=== PATIENT | female | born 1975 | race Caucasian/White ===

== ENCOUNTER 2019-12-18 15:43 | Outpatient (REF) | payer MEDICAID, SELFPAY ==
--- NOTE | 2019-12-18 15:47 | MM_ITS ---
EXAMINATION: MM SCREENING DIGITAL BREAST TOMOSYNTHESIS, BILATERAL CLINICAL INFORMATION: Screening. Asymptomatic. The lifetime risk of breast cancer based on the Tyrer-Cuzick Model is 7.9%. COMPARISON: Mammography: June 20, 2018 and December 02, 2016 TECHNIQUE: Digital breast tomosynthesis is performed in both the craniocaudal and mediolateral oblique views along with computer-aided detection (CAD). Synthesized 2D images are generated from the tomosynthesis. FINDINGS: There are scattered areas of fibroglandular density (ACR BI-RADS breast composition Category b). There are no significant masses, abnormal calcifications, or other abnormalities. MM/MM tomosynthesis screening BI IMPRESSION: There are no significant changes from prior study. ASSESSMENT: BI-RADS 1: Negative RECOMMENDATION: Routine annual mammography screening. This patient's information was entered into a reminder system with a target due date for their next mammogram.
== END 2019-12-18 15:44 | disposition home or self-care (01) ==
LOC: HO.MAMMO 15:43
PROVIDERS: PCP Pediatrics; Visit Provider Pediatrics
DX: Z12.31 Encounter for screening mammogram for malignant neoplasm of breast (principal); K21.9 Gastro-esophageal reflux disease without esophagitis; Z12.11 Encounter for screening for malignant neoplasm of colon; J30.9 Allergic rhinitis, unspecified
CPT/HCPCS: 77063; 77067; 99212

== ENCOUNTER 2020-02-19 11:32 | Outpatient (REF) | payer MEDICAID, SELFPAY ==
[2020-02-19 14:02] LABS: Basophils Percent Auto 0.3 % (0-2); Eosinophils Absolute Auto 0.2 X10*3/uL (0.0-0.4); Eosinophils Percent Auto 1.2 % (0-4); Hematocrit 35.8 % (37-47); Hemoglobin 11.7 g/dl (12.0-16.0); Imm Gran Abs Auto 0.08 X10*3/uL (0.00-0.03); Imm Gran Pct Auto 0.6 % (0.0-0.4); Lymphocytes Absolute Auto 2.1 X10*3/uL (1.2-4.9); Lymphocytes Percent Auto 16.4 % (20-40); Mean Corpuscular HGB Conc 32.7 g/dl (31.0-35.0); Mean Corpuscular Hemoglobin 26.7 pg (27.0-33.0); Mean Corpuscular Volume 81.7 fL (80-98); Monocytes Absolute Auto 0.6 X10*3/uL (0.1-1.2); Monocytes Percent Auto 4.7 % (2-11); Neutrophils Absolute Auto 9.9 X10*3/uL (2.0-8.3); Neutrophils Percent Auto 76.8 % (45-73); Platelet Count 387 X10*3/uL (160-400); Red Blood Count 4.38 X10*6/uL (4.20-5.50); Red Cell Distribution Width 14.8 % (11.0-16.0); White Blood Count 12.9 X10*3/uL (4.8-10.8)
[2020-02-19 14:03] LABS: MANUAL DIFF FLAG NO
[2020-02-19 14:26] LABS: Alanine Aminotransferase 17 U/L (0-31); Albumin Level 4.5 g/dL (3.5-5.0); Alkaline Phosphatase 72 U/L (39-117); Anion Gap 13 (12-20); Aspartate Amino Transferase 17 U/L (5-31); Bilirubin Total 0.2 mg/dL (0.0-1.0); Blood Urea Nitrogen 14 mg/dL (9-16); Calcium 9.3 mg/dL (8.4-10.2); Carbon Dioxide 30 mmol/L (22-29); Chloride 100 mmol/L (96-108); Estimated Glomerular Filt Rate > 60; Glucose Random 88 mg/dL (60-115); Potassium 3.7 mmol/l (3.3-5.1); Sodium 139 mmol/L (135-145); Total Protein 7.4 g/dL (6.5-8.0)
== END 2020-02-19 11:33 | disposition home or self-care (01) ==
LOC: HO.HMGCLDS 11:32
PROVIDERS: PCP Pediatrics; Visit Provider Nurse Practitioner
DX: Z12.11 Encounter for screening for malignant neoplasm of colon (principal)
CPT/HCPCS: 36415; 80053; 85025

== ENCOUNTER 2020-02-22 09:26 | Day surgery (SDC) | payer MEDICAID, SELFPAY ==
--- NOTE | 2020-02-20 13:24 | HO.ANESPROP2 ---
Documented by User: Virginia Bell 02/20/20 13:26 HPI - Anesthesia Eval Consult details Narrative: 44yo F for Colonoscopy PMFSH Past Medical History Medical History Anxiety Depression Elevated cholesterol GERD (gastroesophageal reflux disease) Family History Family History Unknown No problems noted. Unknown No problems noted. Surgical History Surgical History Hx of endoscopy Social History Social History Alcohol intake: current Alcohol intake frequency: holidays/special occasions only Alcohol type: wine Smoking Status: Former smoker Tobacco Type: Cigarette Use of substances other than those prescribed or required for medical reasons: No Advance Directives: No Advance Directives Information Provided: No Advance Directives on File: No Meds Allergies Allergy/AdvReac Type Severity Reaction Status Date / Time No Known Allergies Allergy Verified 12/18/19 14:14 Home Medications Medication Instructions Recorded Confirmed Type albuterol sulfate 90 mcg/actuation 1 inh INHALATION QID 12/18/19 02/18/20 History aerosol inhaler chlorhexidine gluconate 0.12 % 15 ml BUCCAL BID 12/18/19 02/18/20 History mouthwash cholecalciferol (vitamin D3) 1,250 1,250 mcg PO QWEEK 12/18/19 12/18/19 History mcg (50,000 unit) capsule cyclobenzaprine 10 mg tablet 10 mg PO BEDTIME 12/18/19 02/18/20 History fexofenadine 180 mg tablet 180 mg PO DAILY 12/18/19 02/18/20 History fluticasone propionate 50 1 spray INTRANASAL DAILY 12/18/19 02/18/20 History mcg/actuation nasal spray,suspension ibuprofen 600 mg tablet 600 mg PO BID tab 12/18/19 02/18/20 History omega-3 fatty acids 1,000 mg 1,000 mg PO BID 12/18/19 02/18/20 History capsule omeprazole 20 mg capsule,delayed 20 mg PO BID 12/18/19 02/18/20 History release pseudoephedrine HCl 30 mg tablet 30 mg PO Q4-6H PRN 12/18/19 02/18/20 History varenicline 0.5 mg tablet 0.5 mg PO DAILY 12/18/19 02/18/20 History Exam Exam Date and Time: February 20, 2020 1324 Pertinent Lab Results Pertinent Lab Results: Laboratory Tests 02/19/20 02/19/20 11:40 11:40 WBC 12.9 H Hgb 11.7 L Hct 35.8 L Plt Count 387 Sodium 139 Potassium 3.7 Chloride 100 Carbon Dioxide 30 H BUN 14 Creatinine 0.71 Assessment and Plan Assessment Anesthesia Assessment: Chart Reviewed Documented by User: Cecilia Rae 02/22/20 09:58 PMFSH Past Medical History Medical History Anxiety Depression Elevated cholesterol GERD (gastroesophageal reflux disease) Family History Family History Unknown No problems noted. Unknown No problems noted. Surgical History Surgical History Hx of endoscopy Social History Social History Alcohol intake: current Alcohol intake frequency: holidays/special occasions only Alcohol type: wine Smoking Status: Former smoker Tobacco Type: Cigarette Use of substances other than those prescribed or required for medical reasons: No Advance Directives: No Advance Directives Information Provided: No Advance Directives on File: No Meds Allergies Allergy/AdvReac Type Severity Reaction Status Date / Time No Known Allergies Allergy Verified 12/18/19 14:14 Home Medications Medication Instructions Recorded Confirmed Type albuterol sulfate 90 mcg/actuation 1 inh INHALATION QID 12/18/19 02/18/20 History aerosol inhaler chlorhexidine gluconate 0.12 % 15 ml BUCCAL BID 12/18/19 02/18/20 History mouthwash cholecalciferol (vitamin D3) 1,250 1,250 mcg PO QWEEK 12/18/19 12/18/19 History mcg (50,000 unit) capsule cyclobenzaprine 10 mg tablet 10 mg PO BEDTIME 12/18/19 02/18/20 History fexofenadine 180 mg tablet 180 mg PO DAILY 12/18/19 02/18/20 History fluticasone propionate 50 1 spray INTRANASAL DAILY 12/18/19 02/18/20 History mcg/actuation nasal spray,suspension ibuprofen 600 mg tablet 600 mg PO BID tab 12/18/19 02/18/20 History omega-3 fatty acids 1,000 mg 1,000 mg PO BID 12/18/19 02/18/20 History capsule omeprazole 20 mg capsule,delayed 20 mg PO BID 12/18/19 02/18/20 History release pseudoephedrine HCl 30 mg tablet 30 mg PO Q4-6H PRN 12/18/19 02/18/20 History varenicline 0.5 mg tablet 0.5 mg PO DAILY 12/18/19 02/18/20 History Exam Airway Mallampati Class: II TM Dist: >3cm Neck ROM: Full Assessment and Plan Assessment Anesthesia Assessment: Anesthesia Plan Discussed and Chart Reviewed Final Anesthetic Review NPO: Yes ASA Class: II Final Preanesthetic Review: No Changes in Pt Med Stat, Meds/Allgs Chart Reviewed, Consent Obtained/Reviewed and Anes Risks/Benef Reviewed Patient Risk: Low Procedure Risk: Low Assessment/Block/Sedation in SS: Assess/Block/Sedation-SS Anesthetic Plan Anesthetic Plan: MAC: Disposition: Standard PACU
[2020-02-22 06:30] VITALS: BMI 24.9
[2020-02-22 09:48] VITALS: BP 109/71; PULSE 74; RESP 18; TEMP 36.6; O2SAT 99
[2020-02-22 09:57] LABS: UPreg QC Valid YES; Urine Pregnancy NEG (NEGATIVE)
[2020-02-22] MEDS: Lactated Ringers 1,000 ML 100 ML IVCONT (10:03)
[2020-02-22 10:32] VITALS: BP 109/71; PULSE 66; RESP 18; TEMP 36.3; O2SAT 99
--- NOTE | 2020-02-22 10:45 | P.OP_ITS ---
Operative Note Operative Note Date of Service: 02/22/20 Narrative: Pre-op diagnosis: Colon cancer screening Post-op diagnosis: other (Colon polyps, diverticulosis) Procedure: COLONOSCOPY TO THE CECUM WITH BIOPSIES Consent: Indications for the procedure and potential complications of bleeding, perforation, reaction to medications and missed diagnosis were discussed with the patient and informed consent was obtained. Instrument: Olympus PCF H 190 L variable stiffness pediatric colonoscope Monitoring: Vital signs and clinical assessment, intermittent blood pressure monitoring, continuous EKG monitoring, Pulse oximetry and Carbon Dioxide monitoring were done throughout the procedure. Colon withdrawl time was 20 minutes. Procedure: The patient was placed in the left lateral decubitis position and pre-procedure medications were administered. After a digital rectal examination of the ano-rectum, the video colonoscope was inserted into the rectum and advanced through the colon to the cecum. The colonoscope was slowly withdrawn in a retrograde panoramic fashion and the colon mucosa was carefully examined including a retroflexed view of the rectum. Findings and interventions are described below. Procedure Difficulty: Without difficulty Findings: Terminal Ileum: Not evaluated Cecum: Normal Ascending Colon: Normal Transverse Colon: 4-5 mm sessile polyp in proximal TC removed with cold biopsy Descending Colon: Moderate diverticulosis Sigmoid Colon: Moderate diverticulosis Rectum: Normal Ano-rectum: Normal Colon preparation: Good Impression and Post Procedure Diagnosis: Colonoscopy Findings: One small polyp removed Moderate diverticulosis seen in the left colon Plan: Await pathology results Patient has an appointment on 03/21/20 in the [facility] with Brianna Stringer NP . Repeat Colonoscopy interval based on path results - in 5 years if polyps are adenomatous and 10 years if polyps are hyperplastic. Above findings were reviewed with the patient and colon polyps and diverticu losis handouts were given in the discharge area Surgeon: Eyad Donohue MD Anesthesia: MAC (Ponce Garcia CRNA) Estimated blood loss (mL): 0 Pathology: other (A. TC polyp x 1) Condition: stable Disposition: PACU
--- NOTE | 2020-02-22 10:45 | MHC.SHP ---
Pre-Procedural Eval Section A The patient is an INPATIENT: No The History & Physical has been completed within 30 days and I have reviewed it.: No Section B Chief Complaint: Screening Details of Present Illness: Colon cancer screening Relevant Family History (Specify if Yes): No Relevant Social History: Tobacco Use (former smoker) Present Medications: see Short Stay Collaborative assessment Medical History: Significant History (I cholesterol, allergic rhinitis, GERD, depression and anxiety) History of Previous Operations: Relevant previous surgery/procedure and date(s) (EGD) Allergies: Allergies Allergy/AdvReac Type Severity Reaction Status Date / Time No Known Allergies Allergy Verified 12/18/19 14:14 Review of Systems Sugical H&P ROS: Negative: Constitution, Cardiovascular, Respiratory and Gastrointestinal Exam Surgical H&P Exam: Normal: Heart, Normal: Lungs, Normal: Extremities and Normal: Abdomen Plan Diagnosis/Plan: Unchanged I have reviewed the history and physical and performed a pertinent physical examination on my patient. No changes have occurred unless specified.
[2020-02-22 11:36] VITALS: BP 93/57; PULSE 62; RESP 16; TEMP 36.1; O2SAT 99
[2020-02-22 11:51] VITALS: BP 107/72; PULSE 58; RESP 16; TEMP 36.2; O2SAT 100
--- NOTE | 2020-02-22 12:11 | HO.POSTANES ---
Post Anesthesia Evaluation Post Anesthesia Evaluation Vital Signs: Vital Signs Temp Pulse Resp BP Pulse Ox 02/22/20 11:51 97.2 F 58 16 107/72 100 02/22/20 11:36 97 F 62 16 93/57 L 99 02/22/20 10:32 97.3 F 66 18 109/71 99 02/22/20 09:48 97.8 F 74 18 109/71 99 Anesthesia: General (tiva) Mental Status: Awake Pain Control: Satisfactory Nausea/Vomiting: None Hydration: Adequate Anesthesia-Related Issues: No Anes. Related Issues
== END 2020-02-22 12:19 | disposition home or self-care (01) ==
PROVIDERS: PCP Pediatrics; Visit Provider Internal Medicine Gastroenterology
PROC: 0DJD8ZZ Inspection of Lower Intestinal Tract, Via Natural or Artificial Opening Endoscopic (ICD-10-PCS; CPT 45378; principal; 2020-02-22 10:30)
DX: Z12.11 Encounter for screening for malignant neoplasm of colon (principal); D12.2 Benign neoplasm of ascending colon; K57.30 Diverticulosis of large intestine without perforation or abscess without bleeding; K21.9 Gastro-esophageal reflux disease without esophagitis; Z79.899 Other long term (current) drug therapy; Z87.891 Personal history of nicotine dependence
CPT/HCPCS: 45380; 81025; 88305

== ENCOUNTER → 2020-03-27 15:59 | Outpatient (BNVA) | payer MEDICAID, SELFPAY | PROVIDERS: PCP Pediatrics; Visit Provider Nurse Practitioner ==

== ENCOUNTER 2021-05-12 15:07 | Outpatient (REF) | payer MEDICAID, SELFPAY ==
--- NOTE | ~2021-05-12 | MM_ITS ---
EXAMINATION: MM SCREENING DIGITAL BREAST TOMOSYNTHESIS, BILATERAL CLINICAL INFORMATION: Screening. Asymptomatic. The lifetime risk of breast cancer based on the Tyrer-Cuzick Model is 8%. COMPARISON: Mammography: 12/18/2019, 06/20/2018, 12/02/2016 TECHNIQUE: Digital breast tomosynthesis is performed in both the craniocaudal and mediolateral oblique views along with computer-aided detection (CAD). Synthesized 2D images are generated from the tomosynthesis. FINDINGS: There are scattered areas of fibroglandular density (ACR BI-RADS breast composition Category b). There are no significant masses, abnormal calcifications, or other abnormalities. Parenchymal pattern is similar to prior studies. There is no developing density or architectural abnormality. The axilla and skin contours are unremarkable. No significant changes. MM/MM tomosynthesis screening BI IMPRESSION: No mammographic evidence of malignancy. ASSESSMENT: BI-RADS 1: Negative RECOMMENDATION: Routine annual mammography screening. This patient's information was entered into a reminder system with a target due date for their next mammogram.
== END 2021-05-12 15:08 | disposition home or self-care (01) ==
LOC: HO.MAMMO 15:07
PROVIDERS: Visit Provider Pediatrics
DX: Z12.31 Encounter for screening mammogram for malignant neoplasm of breast (principal)
CPT/HCPCS: 77063; 77067

== ENCOUNTER 2021-05-14 08:00 | Outpatient (REF) | payer MEDICAID, SELFPAY ==
[2021-05-14 11:20] LABS: MANUAL DIFF FLAG NO
[2021-05-14 11:33] LABS: Prothrombin Time 11.7 SEC (9.9-13.0)
[2021-05-14 11:35] LABS: Basophils Percent Auto 0.4 % (0-2); Eosinophils Absolute Auto 0.1 X10*3/uL (0.0-0.4); Eosinophils Percent Auto 1.4 % (0-4); Hematocrit 37.7 % (37.0-47.0); Hemoglobin 12.9 g/dl (12.0-16.0); Imm Gran Abs Auto 0.02 X10*3/uL (0.00-0.03); Imm Gran Pct Auto 0.2 % (0.0-0.4); Lymphocytes Absolute Auto 1.1 X10*3/uL (1.2-4.9); Lymphocytes Percent Auto 13.9 % (20-40); Mean Corpuscular HGB Conc 34.2 g/dl (31.0-35.0); Mean Corpuscular Hemoglobin 29.3 pg (27.0-33.0); Mean Corpuscular Volume 85.5 fL (80.0-98.0); Mean Platelet Volume 11.1 fL (9.4-12.3); Monocytes Absolute Auto 0.4 X10*3/uL (0.1-1.2); Monocytes Percent Auto 4.6 % (2-11); Neutrophils Absolute Auto 6.4 x10*3/uL (2.0-8.3); Neutrophils Percent Auto 79.5 % (45-73); Platelet Count 242 X10*3/uL (160-400); Red Blood Count 4.41 X10*6/uL (4.20-5.50); Red Cell Distribution Width 15.6 % (11.0-16.0)
[2021-05-14 11:36] LABS: Partial Thromboplastin Time 34.2 SEC (24.1-38.0)
[2021-05-14 11:47] LABS: HCG Quantitative < 2 mIU/mL
[2021-05-14 12:30] LABS: Alanine Aminotransferase 25 U/L (0-31); Albumin Level 4.3 g/dL (3.5-5.0); Alkaline Phosphatase 62 U/L (39-117); Anion Gap 13 (12-20); Aspartate Amino Transferase 21 U/L (5-31); Bilirubin Total 0.3 mg/dL (0.0-1.0); Blood Urea Nitrogen 15 mg/dL (9-16); Calcium 9.9 mg/dL (8.4-10.2); Carbon Dioxide 28 mmol/L (22-29); Chloride 107 mmol/L (96-108); Estimated Glomerular Filt Rate > 60; Glucose Fasting 85 mg/dL (60-99); Potassium 4.1 mmol/L (3.3-5.1); Sodium 144 mmol/L (135-145); Total Protein 7.3 g/dL (6.5-8.0)
[2021-05-15 07:49] LABS: HIV AB/AG Nonreactive (Nonreactive); HIV Num 1 0.12 S/CO (0.00-0.99)
== END 2021-05-14 08:01 | disposition home or self-care (01) ==
LOC: HO.HMGCLDS 08:00
PROVIDERS: Visit Provider Plastic Surgery
DX: Z01.818 Encounter for other preprocedural examination (principal); Z11.4 Encounter for screening for human immunodeficiency virus [HIV]
CPT/HCPCS: 36415; 80053; 84702; 85025; 85610; 85730; 87389

== ENCOUNTER 2021-05-16 10:33 | Outpatient (REF) | payer MEDICAID, SELFPAY ==
--- NOTE | ~2021-05-16 | XR_ITS ---
EXAMINATION: XR CHEST CLINICAL INFORMATION: Preop COMPARISON: None TECHNIQUE: 2 views of the chest were obtained. FINDINGS: No significant abnormality is noted involving the heart, lungs, mediastinum, bony thorax or soft tissues. XR/XR chest 2V IMPRESSION: Unremarkable examination.
== END 2021-05-16 10:34 | disposition home or self-care (01) ==
LOC: HO.HMGCX 10:33
PROVIDERS: Visit Provider Plastic Surgery
DX: Z01.818 Encounter for other preprocedural examination (principal)
CPT/HCPCS: 71046

== ENCOUNTER 2022-03-23 11:19 | Outpatient (REF) | payer MEDICAID, SELFPAY | END 2022-03-23 11:20 | disposition home or self-care (01) | LOC: HO.HOSX 11:19 | PROVIDERS: Visit Provider Orthopaedic Surgery | DX: Z13.89 Encounter for screening for other disorder (principal) ==

== ENCOUNTER 2022-07-20 14:57 | Outpatient (REF) | payer MEDICAID, SELFPAY ==
--- NOTE | ~2022-07-20 | MM_ITS ---
EXAMINATION: MM SCREENING DIGITAL BREAST TOMOSYNTHESIS, BILATERAL CLINICAL INFORMATION: Screening. Asymptomatic. The lifetime risk of breast cancer based on the Tyrer-Cuzick Model is 8%. COMPARISON: Mammography: 05/12/2021, 12/18/2019, 06/20/2018 TECHNIQUE: Digital breast tomosynthesis is performed in both the craniocaudal and mediolateral oblique views along with computer-aided detection (CAD). Synthesized 2D images are generated from the tomosynthesis. FINDINGS: There are scattered areas of fibroglandular density (ACR BI-RADS breast composition Category b). There are no significant masses, abnormal calcifications, or other abnormalities. No architectural abnormality or developing density or significant change from prior studies. The axilla and skin contours are unremarkable. MM/MM tomosynthesis screening BI IMPRESSION: No mammographic evidence of malignancy. ASSESSMENT: BI-RADS 1: Negative RECOMMENDATION: Routine annual mammography screening. This patient's information was entered into a reminder system with a target due date for their next mammogram.
== END 2022-07-20 14:58 | disposition home or self-care (01) ==
LOC: HO.MAMMO 14:57
PROVIDERS: Visit Provider Pediatrics
DX: Z12.31 Encounter for screening mammogram for malignant neoplasm of breast (principal)
CPT/HCPCS: 77063; 77067

== ENCOUNTER 2023-03-07 12:11 | Outpatient (REF) | payer MEDICAID, SELFPAY | END 2023-03-07 12:12 | disposition home or self-care (01) | LOC: HO.HHCLNP 12:11 | PROVIDERS: Visit Provider Internal Medicine | DX: R30.0 Dysuria (principal) | CPT/HCPCS: 87086; 87088; 87186 ==

== ENCOUNTER 2023-09-08 13:44 | Outpatient (REF) | payer MEDICAID, SELFPAY ==
[2023-09-08 17:25] LABS: MANUAL DIFF FLAG NO
[2023-09-08 17:33] LABS: Basophils Percent Auto 0.5 % (0-2); Eosinophils Absolute Auto 0.1 X10*3/uL (0.0-0.4); Eosinophils Percent Auto 2.2 % (0-4); Hematocrit 36.1 % (37.0-47.0); Hemoglobin 12.2 g/dl (12.0-16.0); Imm Gran Abs Auto 0.04 X10*3/uL (0.00-0.03); Imm Gran Pct Auto 0.7 % (0.0-0.4); Lymphocytes Absolute Auto 1.6 X10*3/uL (1.2-4.9); Lymphocytes Percent Auto 27.7 % (20-40); Mean Corpuscular HGB Conc 33.8 g/dl (31.0-35.0); Mean Corpuscular Hemoglobin 28.8 pg (27.0-33.0); Mean Corpuscular Volume 85.3 fL (80.0-98.0); Mean Platelet Volume 11.2 fL (9.4-12.3); Monocytes Absolute Auto 0.5 X10*3/uL (0.1-1.2); Monocytes Percent Auto 8.1 % (2-11); Neutrophils Absolute Auto 3.5 x10*3/uL (2.0-8.3); Neutrophils Percent Auto 60.8 % (45-73); Platelet Count 286 X10*3/uL (160-400); Red Blood Count 4.23 X10*6/uL (4.20-5.50); Red Cell Distribution Width 13.5 % (11.0-16.0); White Blood Count 5.8 X10*3/uL (4.8-10.8)
[2023-09-08 17:49] LABS: Anion Gap 15 (12-20); Blood Urea Nitrogen 16 mg/dL (9-16); Carbon Dioxide 26 mmol/L (22-29); Chloride 105 mmol/L (96-108); Estimated Glomerular Filt Rate > 60; Glucose Random 84 mg/dL (60-115); Potassium 3.5 mmol/L (3.3-5.1); Sodium 142 mmol/L (135-145)
[2023-09-08 18:22] LABS: Folate 10.3 ng/mL (> or = 4.0); Vitamin B12 305 pg/mL (200-900)
== END 2023-09-08 13:45 | disposition home or self-care (01) ==
LOC: HO.CHCLDS 13:44
PROVIDERS: Visit Provider Pediatrics
DX: R20.2 Paresthesia of skin (principal)
CPT/HCPCS: 36415; 80048; 82550; 82607; 82746; 85025

== ENCOUNTER 2023-09-21 14:53 | Outpatient (REF) | payer MEDICAID, SELFPAY ==
--- NOTE | ~2023-09-21 | MM_ITS ---
EXAMINATION: MM SCREENING DIGITAL BREAST TOMOSYNTHESIS, BILATERAL CLINICAL INFORMATION: Screening. Asymptomatic. COMPARISON: Mammography: This study is compared with prior exams dating back to 2019. TECHNIQUE: Digital breast tomosynthesis is performed in both the craniocaudal and mediolateral oblique views along with computer-aided detection (CAD). Synthesized 2D images are generated from the tomosynthesis. FINDINGS: There are scattered areas of fibroglandular density (ACR BI-RADS breast composition Category b). There are no significant masses, abnormal calcifications, or other abnormalities. MM/MM tomosynthesis screening BI IMPRESSION: No mammographic evidence of malignancy. ASSESSMENT: BI-RADS BI-RADS 1 - Negative RECOMMENDATION: Routine annual mammography screening. 1 year F/U This examination should not preclude the clinical evaluation of a suspicious palpable abnormality. This patient's information was entered into a reminder system with a target due date for their next mammogram. Electronically signed by: Joanna Ruggiero MD 10/18/2023 07:38 AM EDT
== END 2023-09-21 14:54 | disposition home or self-care (01) ==
LOC: HO.MAMMO 14:53
PROVIDERS: PCP Pediatrics; Visit Provider Pediatrics
DX: Z12.31 Encounter for screening mammogram for malignant neoplasm of breast (principal)
CPT/HCPCS: 77063; 77067

== ENCOUNTER → 2023-09-21 15:00 | Outpatient (BNV) | payer MEDICAID, SELFPAY | PROVIDERS: PCP Pediatrics; Visit Provider Radiology Diagnostic Radiology | DX: Z12.31 Encounter for screening mammogram for malignant neoplasm of breast (principal) | CPT/HCPCS: 77063; 77067 ==

== ENCOUNTER 2023-09-28 13:59 | Outpatient (REF) | payer MEDICAID, SELFPAY ==
[2023-09-28 17:41] LABS: MANUAL DIFF FLAG NO
[2023-09-28 17:50] LABS: Basophils Percent Auto 0.5 % (0-2); Eosinophils Absolute Auto 0.1 X10*3/uL (0.0-0.4); Eosinophils Percent Auto 1.9 % (0-4); Hematocrit 35.7 % (37.0-47.0); Hemoglobin 12.2 g/dl (12.0-16.0); Imm Gran Abs Auto 0.02 X10*3/uL (0.00-0.03); Imm Gran Pct Auto 0.3 % (0.0-0.4); Lymphocytes Absolute Auto 1.8 X10*3/uL (1.2-4.9); Lymphocytes Percent Auto 28.4 % (20-40); Mean Corpuscular HGB Conc 34.2 g/dl (31.0-35.0); Mean Corpuscular Hemoglobin 28.7 pg (27.0-33.0); Mean Platelet Volume 10.3 fL (9.4-12.3); Monocytes Absolute Auto 0.4 X10*3/uL (0.1-1.2); Monocytes Percent Auto 6.8 % (2-11); Neutrophils Percent Auto 62.1 % (45-73); Platelet Count 290 X10*3/uL (160-400); Red Blood Count 4.25 X10*6/uL (4.20-5.50); White Blood Count 6.5 X10*3/uL (4.8-10.8)
[2023-09-28 18:04] LABS: Anion Gap 11 (12-20); Blood Urea Nitrogen 13 mg/dL (9-16); Calcium 9.1 mg/dL (8.4-10.2); Carbon Dioxide 27 mmol/L (22-29); Chloride 106 mmol/L (96-108); Estimated Glomerular Filt Rate > 60; Glucose Random 98 mg/dL (60-115); Potassium 3.4 mmol/L (3.3-5.1); Sodium 141 mmol/L (135-145)
[2023-09-28 18:20] LABS: TSH reflex Free T4 1.01 uIU/mL (0.32-4.0); Vitamin D 25-OH Total 22.9 ng/mL (>30)
[2023-09-28 18:34] LABS: Folate 11.5 ng/mL (> or = 4.0); Vitamin B12 351 pg/mL (200-900)
== END 2023-09-28 14:00 | disposition home or self-care (01) ==
LOC: HO.CHCLDS 13:59
PROVIDERS: Visit Provider Pediatrics
DX: Z00.00 Encounter for general adult medical examination without abnormal findings (principal); R79.89 Other specified abnormal findings of blood chemistry; T75.4XXA Electrocution, initial encounter
CPT/HCPCS: 36415; 80048; 82306; 82550; 82607; 82746; 84443; 85025

== ENCOUNTER 2024-11-10 13:55 | Outpatient (REF) | payer OTHER, SELFPAY ==
--- OUTSIDE RECORDS SUMMARY | 2024-11-10 12:40 | XMS_ITS | Encounter Summary ---
Author Organization [employer] Address [address] [place] [address] Care Team Providers Care Shredder Picker Name Role Phone Meredith Rm MD Primary Care Provider [phone] Reason for Visit * Reason Comments UTI Encounter Details Date Type Department Care Team (Late st Contact Info) Description 11/10/2024 12:40 PM EDT Office Visit [facility] [address], [place] [phone] Queta Osorio MD [address] [place], [place] [phone] Acute cystitis with hematuria (Primary Dx); Elevated BP without diagnosis of hypertension; Dysuria Social History Tobacco Use Types Packs/Day Years Used Date Smoking Tobacco: Every Day Cigarettes Passive Smoke Exposure: Current Smokeless Tobacco: Never Housing Stability Answer Date Recorded What is your housing situation today? I have [employer] [place] 03/08/[address] you li ve. Do you have problems with any of the following? None of the above 03/08/2023 Food Insecurity Answer Date Recorded Within the past 12 months, y ou worried that your food would run out before you got money to buy more: Never True 03/08/2023 Within the past 12 months,th e food you bought just didn't last and you didn't have enough money to get more: Never True Transportation Answer Date Recorded In the past 12 months, has l ack of transportation kept you from medical appts, meetings, work or from getting things needed for daily living? No 03/08/2023 Utilities Answer Date Recorded In the past 12 months, has t he electric, gas, oil or water company threatened to shut off services in your home? No 03/08/2023 Comments Unknown Sex and Gender Information Value Date Recorded Sex Assigned at Female 12/14/2021 10:17 AM EDT Legal Sex Female 10:17 AM EDT Gender Identity Female 12/14/2021 10:17 AM EDT Sexual Orientation Straight 12/14/2021 10 :17 AM EDT documented as of this encounter Last Filed Vital Signs Vital Sign Reading Time Taken Comments Blood Pressure 124/92 11/10/2024 12:31 PM EDT Chan carson Pulse 80 11/10/2024 12:30 PM EDT Temperature 36.7 C (98.1 F) 11/10/2024 12:30 PM EDT Respiratory Rate 17 11/10/2024 12:30 PM EDT Oxygen Saturation 98% 11/10/2024 12:30 PM EDT Inhaled Oxygen Concentration - - Weight 73.5 kg (162 lb 2 oz) 11/10/2024 12:30 PM EDT Height 160 cm (5' 3 ) 11/10/2024 12:30 PM EDT Body Mass Index 28.72 11/10/2024 12:30 PM EDT documented in this encounter Progress Notes * Queta Osorio MD - 11/10/2024 12:40 PM EDT SUBJECTIVE: Olga Lassiter is a 49 y.o. year old female who presents for Walk In Center/UTI. Denies recent illness, injury, or hospitalization. Acute concerns: Patient complaining of suprapubic pressure, increased frequency and back pain x 5 days, no fever orchills. She had initial episode of dysuria x 2 days that is now resolved. She denies vaginal discharge. Last UTI was approximately 6 to 8 months ago. LMP none, she is HRT Social History Social History Narrative Not on file Problem List[1] Family History[2] Review of Systems Constitutional: Negative for chills, fatigue and fever. HENT: Negative for congestion, ear pain, nosebleeds, rhinorrhea, sinus pressure, sore throat and trouble swallowing. Eyes: Negative for pain and discharge. Respiratory: Negative for cough, chest tightness and shortness of breath. Cardiovascular: Negative for chest pain, palpitations and leg swelling. Gastrointestinal: Negative for abdominal pain, blood in stool, constipation, diarrhea and nausea. Endocrine: Negative for polydipsia and polyuria. Genitourinary: Positive for dysuria, frequency and pelvic pain. Negative for genital sores and vaginal discharge. Musculoskeletal: Negative for back pain and neck pain. Skin: Negative for rash. Allergic/Immunologic: Negative for environmental allergies. Neurological: Negative for dizziness, seizures, weakness, light-headedness and headaches. Hematological: Negative for adenopathy. Psychiatric/Behavioral: Negative for agitation, behavioral problems, self-injury and suicidal ideas. OBJECTIVE: Vitals: 11/10/24 1230 11/10/24 1231 BP: (!) 145/92 (!) 124/92 BP Location: Left arm Left arm Patient Position: Sitting Lying BP Cuff Size: Adult Adult Pulse: 80 Resp: 17 Temp: 98.1 ??F (36.7 ??C) TempSrc: Oral SpO2: 98% Weight: 162 lb 2 oz (73.5 kg) Height: 5' 3 (1.6 m) Physical Exam HENT: Right Ear: Tympanic membrane and ear canal normal. Left Ear: Tympanic membrane and ear canal normal. Mouth/Throat: Mouth: Mucous membranes are moist. Pharynx: No oropharyngeal exudate or posterior oropharyngeal erythema. Eyes: Pupils: Pupils are equal, round, and reactive to light. Cardiovascular: Rate and Rhythm: Regular rhythm. Pulses: Normal pulses. Heart sounds: Normal heart sounds. No murmur heard. Pulmonary: Breath sounds: Normal breath sounds. Abdominal: General: Bowel sounds are normal. Palpations: Abdomen is soft. Tenderness: There is no abdominal tenderness. Musculoskeletal: General: Normal range of motion. Cervical back: Neck supple. Skin: General: Skin is warm. Neurological: General: No focal deficit present. Mental Status: She is alert and oriented to person, place, and time. Psychiatric: Mood and Affect: Mood normal. Behavior: Behavior normal. Office Visit on 11/10/2024 Component Date Value Ref Range Status Color, UA 11/10/2024 Light Yellow Final Clarity, UA 11/10/2024 Clear Final Glucose, UA 11/10/2024 Negative Final Bilirubin, UA 11/10/2024 Negative Final Ketones, UA 11/10/2024 Negative Final Spec Grav, UA 11/10/2024 1.015 Final Blood, UA 11/10/2024 Positive (A) Negative, None Detected Final Trace-intact pH, UA 11/10/2024 6.5 Final Protein, UA 11/10/2024 Negative Final Urobilinogen, UA 11/10/2024 0.2 Final Leukocytes, UA 11/10/2024 Trace Negative, Rare, Trace Final Small Nitrite, UA 11/10/2024 Negative Negative, None Detected Final Appearance, UA 11/10/2024 clear Final QC Media Lot # 11/10/2024 [id number] Final Lot# Expiration Date 11/10/2024 [id number] Final Problem List Items Addressed This Visit Acute cystitis with hematuria - Primary Bactrim DS bid x 5d Increase water Intake. Fu Ux Culture results. Elevated BP without diagnosis of hypertension Unclear if related to hypertension versus one related to pain from UTI. Advised to check BP at home after 10 minutes rest, hopefully before going to bed and follow-up BP with RN in 2 to 4 weeks, she will follow-up with PCP in 1 to 2 months Other Visit Diagnoses Dysuria Relevant Orders POCT Urinalysis (Completed) Culture, Urine, Routine Follow Up: Medications Ordered Prior to Encounter[3] [1] Patient Active Problem List Diagnosis Low vitamin D level Chronic constipation Acute cystitis with hematuria Black stool Tobacco use Amblyopia of left eye Overweight Hyperlipidemia Nicotine dependence Depressive disorder Anxiety Encounter for IUD removal Elevated BP without diagnosis of hypertension [2] No family history on file. [3] Current Outpatient Medications on File Prior to Visit Medication Sig Dispense Refill azelastine (Astelin) 0.1 % nasal spray Administer 1 spray into each nostril 2 times daily. Use in each nostril as directed 30 mL 12 cetirizine (ZyrTEC) 10 MG tablet TAKE ONE TABLET EVERY DAY 90 tablet 1 ergocalciferol (Vitamin D2) 1.25 MG (71087 UT) capsule Take 1 capsule (1.25 mg) by mouth 1 (one) time per week. 12 capsule 0 estradiol (Climara) 0.025 MG/24HR APPLY 1 PATCH TOPICALLY ONCE PER WEEK 12 patch 1 gabapentin (Neurontin) 300 MG capsule TAKE ONE CAPSULE TWICE DAILY 60 capsule 0 ibuprofen 600 MG tablet Take 1 tab orally tid with food intake prn pain 90 tablet 0 progesterone 100 MG capsule Take 1 capsule (100 mg) by mouth Once per day. 30 capsule 11 No current facility-administered medications on file prior to visit. documented in this encounter Miscellaneous Notes * Assessment & Plan Note - Queta Osorio MD - 11/10/2024 12:49 PM EDT Associated Problem(s): Elevated BP without diagnosis of hypertension Unclear if related to hypertension versus one related to pain from UTI. Advised to check BP at home after 10 minutes rest, hopefully before going to bed and follow-up BP with RN in 2 to 4 weeks, she will follow-up with PCP in 1 to 2 months * Assessment & Plan Note - Queta Osorio MD - 11/10/2024 12:48 PM EDT Associated Problem(s): Acute cystitis with hematuria Bactrim DS bid x 5d Increase water Intake. Fu Ux Culture results. documented in this encounter Plan of Treatment Upcoming Encounters Date Type Department Care Team (Late st Contact Info) Description 11/14/2024 3:30 PM EDT Office Visit [facility] [address] [place] [address] Katheryn Helm CNM [address] [place] [address] 12/05/2024 3:00 PM EDT Clinical Support [facility] [address] [place] [address] 01/17/2025 3:15 PM EST Office Visit [facility] [address] [place] [address] Meredith Rm MD [address] [place] [address] Scheduled Orders Name Type Priority Associated Diagnoses Orde r Schedule Culture, Urine, Routine Microbiology Routine Dysuria Ordered: 11/10/2024 documented as of this encounter Procedures Procedure Name Priority Date/Time Associated Diagnosis Comments POCT URINALYSIS DIPSTICK Routine 11/10/2024 12:33 PM EDT Dysuria documented in this encounter Results * (ABNORMAL) POCT Urinalysis (11/10/2024 12:33 PM EDT) Color, UA Light Yellow Clarity, UA Clear Glucose, UA Negative Bilirubin, UA Negative Ketones, UA Negative Spec Grav, UA 1.015 Blood, UA Positive(A) Negative, None Detected Comment:Trace-intact pH, UA 6.5 Protein, UA Negative Urobilinogen, UA 0.2 Leukocytes, UA Trace Negative, Rare, Trace Comment:Small Nitrite, UA Negative Negative, None Detected Appearance, UA clear QC Media Lot # [id number] Lot# Expiration Date Urine 11/10/2024 12:3 3 PM EDT Queta Osorio MD POINT OF CARE TEST ENTER /EDIT ORDERABLES Final Result documented in this encounter Visit Diagnoses Diagnosis Acute cystitis with hematuria- Primary Elevated BP without diagnosis of hypertension Dysuria documented in this encounter Care Teams Shredder Picker Relationship Specialty Start Date End Date Meredith Rm MD [address] [place] [id number] PCP - General Family Medicine 02/14/18 documented as of this encounter
--- OUTSIDE RECORDS SUMMARY | 2024-11-10 13:57 | XMS_ITS | Encounter Summary ---
Author Organization [employer] Address [address] [facility] 7t [place] [address] Care Team Providers Care Vehicle Trimmer Name Role Phone Meredith Rm MD Primary Care Provider [phone] Reason for Visit * Reason Onset Date Comments Results 09/29/2023 Encounter Details Date Type Department Care Team (Late st Contact Info) Description 09/29/[address] [facility] MEDICINE [address] [place] [address] Meredith Rm MD [address] [place], [place] [phone] Results Social History Tobacco Use Types Packs/Day Years [...] AM EDT documented as of this encounter Miscellaneous Notes * Telephone Encounter - Paola Glasgow - 09/30/2023 11:20 AM EDT Tc from pt requesting to speak with whoever is in charge of the clinic , stated again will be calling all day today if she doesn't receive a call back from someone in a higher position. * Telephone Encounter - Mukund Sawyer - 09/29/2023 4:21 PM EDT Incoming call from pt, requesting to speak with a research laboratory manager, sports book writer inform from point of View EULALIO Crandall and Sri will be giving her a call unsure when, Pt advised if issue is not resolved within today, she will be calling again tomorrow all day. * Telephone Encounter - Rolf Cummins - 09/29/2023 12:48 PM EDT Tc from pt returning call and demanding to speak to director of [facility], states they will be seen at a different facility for labs and will come in with results. Pt also stated they will be filing a law suit for the entire [facility] management. Pt was very upset. Brine Plant Operator attempted to get a hold of manager architectural unable to reach. Please see previous message. Pt stated if no call in 20 min they will be coming in p erson. * Telephone Encounter - Vineet Bentley - 09/29/2023 12:02 PM EDT TC from pt irate and using foul language requesting a call from Dr Rm , Nurse Distribution Technician Julissa ,Blue Leather Sorter [place]. Pt is threatening call every 10-20 min until gets a response regarding her labs . Also threatening with a system safety manager and pulling 17yrld son from seeing Dr Rm . States will be makingcalls to system safety manager and who ever she needs to, to file a report against [facility] . Pt disconnected call before I could get a word in . * Telephone Encounter - Wing Flaquita RN - 09/29/2023 11:22 AM EDT Tc to pt who was very upset that RN was calling her and was asking for a nurse research laboratory manager. Advised pt that PCP was seeing pt's and would get to the lab after seeing pts. Pt found this to be unacceptableand complained about back pain and stated that PCP was a bad provider. Pt claimed that she had to 'beg Dr. Rm to order the labs. and that the PCP may have it out for her for me after I put herin her place . Pt again requested to speak to a research laboratory manager to file a complaint. Attempted to advise ptto go to ED for reported back pain but was interrupted as pt stated that she would call [place] to file a complaint against everyone she called this morning. Called advised that she could do so if she wanted and that the caller was doing what they could to help as PCP was seeing pts at the moment. Pt then accused the caller of also responsible in her claims of care mismanagement at [facility] as she claimed the caller refused to give the name of the nurse research laboratory manager. Caller had already told the pt that the nurse research laboratory manager was busy and had been told already that someone would return her call at around noon. Caller then advised pt the call was ending and disconnected call as pt attempted to continue to yell at the caller. * Telephone Encounter - Dany Lin - 09/29/2023 10:45 AM EDT Tc from patient calling in regards to message below patient is very frustrated and is demanding a call back * Telephone Encounter - Wing Flaquita RN - 09/29/2023 9:57 AM EDT Please advise on elevated creatinine lab done on 09/27. * Telephone Encounter - Mukund Sawyer - 09/29/2023 9:13 AM EDT Tc from pt requesting a call in regards to her Critical Lab results, pt states their a much higher,causing her effects in her kidneys. documented in this encounter Plan of Treatment Upcoming Encounters Date Type Department Care Team (Late st Contact Info) Description 11/14/2024 3:30 PM EDT Office Visit [facility] MEDICINE [address] [place] [address] Kahteryn Helm CNM [address] [place] [address] 12/05/2024 3:00 PM EDT Clinical Support [facility] [address] [place] [address] 01/17/2025 3:15 PM EST Office Visit [facility] [address] [place] [address] Meredith Rm MD [address] [place] [address] documented as of this encounter Visit Diagnoses Not on filedocumented in this encounter Care Teams Vehicle Trimmer Relationship Specialty Start Date End Date Meredith Rm MD [address] [place] [address] PCP - General Family Medicine 02/14/18 documented as of this encounter
--- OUTSIDE RECORDS SUMMARY | 2024-11-10 13:57 | XMS_ITS | Encounter Summary ---
Author Organization [employer] Address [address] [facility] [address]t [place] [address] Care Team Providers Care Kiln Maintenance Name Role Phone Meredith Rm MD Primary Care Provider [phone] Encounter Details Date Type Department Care Team (Latest Contact Info) Description 11/10/2024 Travel Social History Tobacco Use Types Packs/Day Years [...] AM EDT documented as of this encounter Plan of Treatment Upcoming Encounters Date Type Department Care Team (Late st Contact Info) Description 11/14/2024 3:30 PM EDT Office Visit [facility] MED[facility] [address] [place] [address] Katheryn Helm, ROSALESM [address] [place] [address] 12/05/2024 3:00 PM EDT Clinical Support [facility] [address] [place] [address] 01/17/2025 3:15 PM EST Office Visit [facility] [address] [place] [address] Meredith Rm MD [address] [place] [address] documented as of this encounter Visit Diagnoses Not on filedocumented in this encounter Care Teams Kiln Maintenance Relationship Specialty Start Date End Date Meredith Rm MD [address] [place] [address] PCP - General Family Medicine 02/14/18 documented as of this encounter
--- OUTSIDE RECORDS SUMMARY | 2024-11-10 13:57 | XMS_ITS | Encounter Summary ---
Author Organization [employer] [facility] Address [address] [facility] [address] h Floor [place] [id number] Care Team Providers Care Hose Handler Name Role Phone Meredith Rm MD Primary Care Provider [phone] Encounter Details Date Type Department Care Team (Latest Contact Info) Description 01/12/2022 Abstract [facility] CONVERSIONS Dental, Provider, DDS Social History Tobacco Use Types Packs/Day Years Used Date Smoking Tobacco: Never Assessed Comments Unknown Sex and Gender Information Value [...] Description 11/14/2024 3:30 PM EDT Office Visit [facility] MEDIC[facility] [address] [place] [address] Katheryn Helm, CNM [address] [place] [address] 12/05/2024 3:00 PM EDT Clinical Support [facility] [address] [place] [address] 01/17/2025 3:15 PM EST Office Visit [facility] [address] [place] [address] Meredith Rm MD [address] [place] [address] documented as of this encounter Visit Diagnoses Not on filedocumented in this encounter Care Teams Hose Handler Relationship Specialty Start Date End Date Meredith Rm MD [address] [place] [address] PCP - General Family Medicine 02/14/18 documented as of this encounter
--- OUTSIDE RECORDS SUMMARY | 2024-11-10 13:57 | XMS_ITS | Encounter Summary ---
Author Organization [employer] Address [address] [facility] 7t [place] [address] Care Team Providers Care Plant Care Worker Name Role Phone Meredith Rm MD Primary Care Provider [phone] Reason for Visit * Reason Onset Date Comments Med Refill 04/16/2024 Encounter Details Date Type Department Care Team ([facility] st Contact Info) Description 04/16/2024 Refill [facility] PEDS [address] [place], [place] [phone] Meredith Rm MD [address] [place] [address] Social History Tobacco Use Types Packs/Day Years [...] Description 11/14/2024 3:30 PM EDT Office Visit [facility] MEDICINE [address] [place] [address] Katheryn Helm CNM [address] [place] [address] 12/05/2024 3:00 PM EDT Clinical Support [facility] [address] [place] [address] 01/17/2025 3:15 PM EST Office Visit [facility] [address] [place] [address] Meredith Rm MD [address] [place] [address] documented as of this encounter Visit Diagnoses Not on filedocumented in this encounter Care Teams Plant Care Worker Relationship Specialty Start Date End Date Meredith Rm MD [address] [place] [address] PCP - General Family Medicine 02/14/18 documented as of this encounter
--- OUTSIDE RECORDS SUMMARY | 2024-11-10 13:57 | XMS_ITS | Encounter Summary ---
Author Organization [employer] Address [address] [facility] 7t [place] [address] Care Team Providers Care Chief Operator Lock Tender Name Role Phone Meredith Rm MD Primary Care Provider [phone] Reason for Visit * Reason Onset Date Comments Nurse Triage 11/08/2024 Encounter Details Date Type Department Care Team ([facility] st Contact Info) Description 11/08/2024 Telephone C [facility] [address] [place], [place] [phone] Meredith Rm MD [address] [place] [address] Nurse Triage Social History Tobacco Use Types Packs/Day Years [...] encounter Miscellaneous Notes * Telephone Encounter - Fatuma Avila RN - 11/09/2024 10:05 AM EDT Called pt regarding triage of yesterday, spoke to pt. Pt states symptoms are not worse and no acutenew symptoms. Pt requesting appointment in [facility] for possible UTI. Advised nothing available today, and given option of the walk in center, declined. Pt has upcoming appointment with Keith Helm and will speak to her then. Advised to call back as needed for appointment update. Pt understands communication. * Telephone Encounter - Anita Kimbrough RN - 11/08/2024 10:39 AM EDT Called pt. Pt. States that 3-4 days ago she started to have UTI symptoms. Pt. States that she has cramping in her abdomen. Pt. Does have a history. Of GERD and ate some flaming hot cheetos so she is unsure if she has a GERD flare up. Pt. Has also been taking Estrogen for a while and unsure if that is aggravating her urine. Pt. Does have frequency. Pt. Has [employer] and has to wait until she can change insurance in December. Pt. Due for PE aand wants to be seen. Appointment. Made for Katheryn for? UTI and also to discuss Estrogen and possible labs for estrogen levels as she states she theodore not been seen for any follow ups on that and PCP wanted her to follow up with ENGINE CLEANER. Pt. Also looking for an appointment. With a provider prior to December to discuss possible GERD getting worse. Will keep pt. In my in basket and check on status of abdominal discomfort tomorrow as pt. States she will try tums today to see if it was the cheetos that aggravated her GERD. Pt. Does have increasedurination but no burning or pain with urination and no blood visible in urine. No fever. No nausea or vomiting. Pt. States BM's WNL. No blood in stool. Protocol Used: Abdominal Pain - Female (Adult) Protocol-Based Disposition: See in Office or Video Visit Today or Tomorrow Positive Triage Question: * Mild pain (e.g., does not interfere with normal activities) and pain comes and goes (cramps) lasts > 48 hours (Exception: This same abdominal pain is a chronic symptom recurrent or ongoing AND present > 4 weeks.) * All higher-acuity triage questions were negative Care Advice Discussed: * Drink Clear Fluids * Diet * Pass a Stool * Telephone Encounter - Mario Berg - 11/08/2024 10:30 AM EDT Symptoms: Abdominal Pain - Female - Not , Urine Symptoms Outcome: Schedule a same-day appointment or talk to a nurse or provider today Reason: Caller denied all higher acuity questions The caller accepted this outcome. Contact pt at [phone] documented in this encounter Plan of Treatment Upcoming Encounters Date Type Department Care Team (Late st Contact Info) Description 11/14/2024 3:30 PM EDT Office Visit [facility] MEDICINE [address] [place] [address] Katheryn Helm CNM [address] [place] [address] 12/05/2024 3:00 PM EDT Clinical Support [facility] [address] [place] [address] 01/17/2025 3:15 PM EST Office Visit [facility] [address] [place] [address] Meredith Rm MD [address] [place] [address] documented as of this encounter Visit Diagnoses Not on filedocumented in this encounter Care Teams Chief Operator Lock Tender Relationship Specialty Start Date End Date Meredith Rm MD [address] [place] [address] PCP - General Family Medicine 02/14/18 documented as of this encounter
--- OUTSIDE RECORDS SUMMARY | 2024-11-10 13:57 | XMS_ITS | Encounter Summary ---
Author Organization [employer] [facility] Address [address] [facility] 7t [place] [address] Care Team Providers Care Quality Systems Specialist Name Role Phone Meredith Rm MD Primary Care Provider [phone] Encounter Details Date Type Department Care Team ([facility] Contact Info) Description 01/25/2022 Abstract [facility] ADULT DENTAL [address] [place], [place] [phone] Dental, Provider, DDS Social History Tobacco Use Types Packs/Day Years Used Date Smoking Tobacco: Never Assessed Comments Unknown Sex and Gender Information Value Date Recorded Sex Assigned at Female 12/14/2021 10:17 AM EDT Legal Sex Female 10:17 AM EDT Gender Identity Female 12/14/2021 10:17 AM EDT Sexual Orientation Straight 12/14/2021 10 :17 AM EDT COVID-19 Exposure Response Date Recorded In the last 10 days, have zelda amor been in contact with someone who was confirmed or suspected to have Coronavirus/COVID-19? No / Unsure 01/28/2022 3:03 PM EST documented as of this encounter Plan of Treatment Upcoming Encounters Date Type Department Care Team ([facility] Contact Info) Description 11/14/2024 3:30 PM EDT Office Visit [facility] MED[facility] [address] [place] [address] Katheryn Helm CNM [address] [place] [address] 12/05/2024 3:00 PM EDT Clinical Support [facility] MED & PEDS [address] [place], [place] [phone] 01/17/2025 3:15 PM EST Office Visit [facility] MED & PEDS [address] [place], [place] [phone] Meredith Rm MD [address] [place] [address] Scheduled Orders Name Type Priority Associated Diagnoses Orde r Schedule 7 7 EXTRACTION, ERUPTED TOOTH OR EXPOSED ROOT (ELEVATION AND/OR FORCEPS REMOVAL) Dental Routine [address] arting 01/28/2022 6 D 6 D RESTORATIVE - RESIN-BASED COMPOSITE RESTORATIONS - DIRECT - RESIN-BASED COMPOSITE - ONE SURFACE, ANTERIOR Dental Routine 1 Occurre nces starting 01/28/2022 6 M 6 M RESTORATIVE - RESIN-BASED COMPOSITE RESTORATIONS - DIRECT - RESIN-BASED COMPOSITE - ONE SURFACE, ANTERIOR Dental Routine 1 Occurre nces starting 01/28/2022 6 L 6 L RESTORATIVE - RESIN-BASED COMPOSITE RESTORATIONS - DIRECT - RESIN-BASED COMPOSITE - ONE SURFACE, ANTERIOR Dental Routine 1 Occurre nces starting 01/28/2022 21 MB 21 MB RESTORATIVE - RESIN-BASED COMPOSITE RESTORATIONS - DIRECT - RESIN-BASED COMPOSITE - TWO SURFACES, POSTERIOR Dental Routine 1 Occur rences starting 01/28/2022 11 DL 11 DL RESTORATIVE - RESIN-BASED COMPOSITE RESTORATIONS - DIRECT - RESIN-BASED COMPOSITE - TWO SURFACES, ANTERIOR Dental Routine 1 Occurr ences starting 01/28/2022 documented as of this encounter Visit Diagnoses Not on filedocumented in this encounter Care Teams Quality Systems Specialist Relationship Specialty Start Date End Date Meredith Rm MD [address] [place] [address] PCP - General Family Medicine 02/14/18 documented as of this encounter
--- OUTSIDE RECORDS SUMMARY | 2024-11-10 13:57 | XMS_ITS | Clinical Summary ---
Author Organization [email or web address] Address [address] [facility] 7t [place] [address] Care Team Providers Care Restaurant Crew Person Name Role Phone Meredith Rm MD Primary Care Provider [phone] Allergies No known active allergies Medications azelastine (Astelin) 0.1 % nasal spray Administer 1 spray into each nostril 2 times daily. Use in each nostril as directed 30 mL 12 06/25/19 23 Active ergocalciferol (Vitamin D2) 1.25 MG (38473 UT) capsule Take 1 capsule (1.25 mg) by mouth 1 (one) time per week. 12 capsule 09/29/19 24 Active ibuprofen 600 MG tablet Take 1 tab orally tid with food intake prn pain 90 tablet 10/06/19 24 Active progesterone 100 MG capsule Take 1 capsule (100 mg) by mouth Once per day. 30 capsule 11 04/18/19 25 026 Active cetirizine (ZyrTEC) 10 MG tablet TAKE ONE TABLET EVERY DAY 90 tablet 1 07/13/19 25 Active estradiol (Climara) 0.025 MG/24HR APPLY 1 PATCH TOPICALLY ONCE PER WEEK 12 patch 1 09/25/19 25 Active gabapentin (Neurontin) 300 MG capsule TAKE ONE CAPSULE TWICE DAILY 60 capsule 10/17/19 25 Active sulfamethoxazo le-trimethopri m (Bactrim DS) 800-160 MG tablet Take 1 tablet by mouth 2 times daily for 5 days. 10 tablet 11/11/19 25 025 Active gabapentin (Neurontin) 300 MG capsule Take 1 capsule (300 mg) by mouth 2 times daily. 60 capsule 09/19/19 25 025 Discontinued(Re order (will not trigger notification to Pharmacy)) Active Problems Problem Noted Date Diagnosed Date Elevated BP without diagnosis of hypertension Assessment & Plan (11/10/2024 12:49 PM EDT): Unclear if related to hypertension versus one related to pain from UTI. Advised to check BP at home after 10 minutes rest, hopefully before going to bed and follow-up BP with RN in 2 to 4 weeks, she will follow-up with PCP in 1 to 2 months Encounter for IUD removal 12/15/2023 Assessment & Plan (12/15/2023 3:05 PM EDT): Patient tolerated procedure well. No further contraception due to menopausal state. Recommended fup with PCP to discussed HRT. RTC prn. Amblyopia of left eye 07/29/2023 Tobacco use 03/17/2023 Chronic constipation 03/07/2023 Assessment & Plan (03/07/2023 6:16 PM EST): Counseled to increase water and fiber intake Take colace bid prn constipation Due for colonoscopy on 2025 due to hx TA on . Avoid Foods that contain seeds due to hx diverticulosis. Acute cystitis with hematuria 03/07/2023 Assessment & Plan (11/10/2024 12:48 PM EDT): Bactrim DS bid x 5d Increase water Intake. Fu Ux Culture results. Assessment & Plan (03/07/2023 6:17 PM EST): Bactrim DS bid x 5d Increase water Intake. Fu Ux Culture results. Black stool 03/07/2023 Assessment & Plan (03/07/2023 6:17 PM EST): Order hemoccult Colonoscopy up to date. Low vitamin D level 12/22/2016 Hyperlipidemia 12/22/2016 Nicotine dependence 12/22/2016 Overweight 08/23/2011 Anxiety 08/23/2011 Depressive disorder 06/10/2011 Encounters Date Type Department Care Team Description 11/10/2024 12:40 PM EDT Office Visit [facility] [address] [address] Queta Osorio MD Acute cystitis with hematuria (Primary Dx); Elevated BP without diagnosis of hypertension; Dysuria 11/10/2024 Travel 11/09/2024 Telephone [facility] [address] [place] [address] Meredith Rm MD Call Back Request 11/08/2024 Telephone [facility] [address] [place] [address] Meredith Rm MD Nurse Triage 10/13/2024 Refill [facility] [address] [place] [address] Meredith Rm MD 09/22/2024 Refill [facility] [address] [place] [address] Meredith Rm MD 09/18/2024 Refill [facility] [address] [place] [address] Meredith Rm MD 09/18/2024 Telephone [facility] [address] [place] [address] Meredith Rm MD Nurse Triage from Last 3 Months Immunizations Immunization Administration Dates Next Due Influenza injectable quadriv alent IIV4 with preservative 12/14/2018,12/22/2016,01/06/2016 Influenza injectable quadriv alent preservative free 12/09/2022,12/11/2021,01/06/2021,2019,01/20/2018 Influenza, Split (incl. ubaldo fied surface antigen) 11/09/2012,12/06/2011 Influenza, seasonal, injecta ble, preservative free 12/07/2023 Moderna Covid-19 Vaccine 12+ 01/15/2021 Pfizer Covid-19 Vaccine 12+ 12/07/2023,1 ,04/05/2020,2020 Pfizer Covid-19 Vaccine 12+ Bivalent 12/11/2021 Tdap 01/20/2018 Social History Tobacco Use Types Packs/Day Years [...] Orientation Straight 12/14/2021 10 :17 AM EDT Last Filed Vital Signs Vital Sign Reading Time Taken Comments Blood Pressure 124/92 11/10/2024 12:31 PM EDT [place] carson Pulse 80 11/10/2024 12:30 PM EDT [...] Mass Index 28.72 11/10/2024 12:30 PM EDT Plan of Treatment Upcoming Encounters Date Type Department Care Team (Late st Contact Info) Description 11/14/2024 3:30 PM EDT Office Visit [facility] [address] [place] [address] Katheryn Helm CNM [address] [place] [address] 12/05/2024 3:00 PM EDT Clinical Support [facility] [address] [place] [address] 01/17/2025 3:15 PM EST Office Visit [facility] [address] [place] [address] Meredith Rm MD [address] [place] [address] Health Maintenance Due Date Last Done Comments CT Colonography 1973 Colonoscopy 1973 Colorectal Cancer Screening 1973 Dental Prophylaxis 1973 Dental X-Ray: Full Mouth 1973 Depression Screening 1973 FIT DNA/Cologuard 1973 FIT 1973 FOBT 1973 Lipid Panel 1973 Sigmoidoscopy 1973 Disability Screening 1973 Alcohol/Substance Use Screening 1985 Family Planning (PISQ) 1988 Hepatitis B Vaccines (1 of 3 - 19+ 3-dose series) 1992 Pneumococcal Vaccine: 50+ Years (1 of 2 - PCV) 1992 Zoster Vaccines (1 of 2) 07/04/2023 Dental Oral Exam 11/18/2023 05/18/2023 SDOH Screening 03/08/2024 03/08/2023 Dental X-Ray: Bitewings 05/18/2024 05/18/2023, 05/17 Influenza Vaccine (#1) 2024 , 12/09/2022, 12/11/2021, Additional history exists Cervical Cancer Screening 01/28/2025 HPV/Cotest 01/28/2025 01/29/2020, 10/11/2017 Pap Smear 01/28/2025 01/29/2020 Mammogram 09/20/2025 09/21/2023, 06/0 07/2022, 05/12/2021, Additional history exists Tobacco Screening 11/10/2025 11/10/2024 DTaP/Tdap/Td Vaccines (2 - Td or Tdap) 01/21/2028 01/20/2018 RSV Patients and Patients Aged 60 years or older (1 - 1-dose 75+ series) 2048 Hepatitis C Screening Completed 02/14/2020 HIV Screening Completed 05/14/2021, 02/14/2020 COVID-19 Vaccine Completed 12/07/2023, , 12/11/2021, Additional history exists HIB Vaccines Aged Out No longer eligi ble based on patient's age to complete this topic HPV Vaccines Aged Out No longer eligi ble based on patient's age to complete this topic Hepatitis A Vaccines Aged Out No long er eligible based on patient's age to complete this topic IPV Vaccines Aged Out No longer eligi ble based on patient's age to complete this topic Meningococcal B Vaccine Aged Out No l onger eligible based on patient's age to complete this topic Meningococcal Vaccine Aged Out No brendon dick eligible based on patient's age to complete this topic RSV under 20 months Aged Out No longe r eligible based on patient's age to complete this topic Rotavirus Vaccines Aged Out No longer eligible based on patient's age to complete this topic Procedures Procedure Name Priority Date/Time Associated Diagnosis Comments POCT URINALYSIS DIPSTICK Routine 11/10/2024 12:33 PM EDT Dysuria BI MAMMOGRAM SCREENING TOMOSYNTHESIS BILATERAL Routine 09/21/2023 3:00 PM EDT BITEWING - SINGLE RADIOGRAPHIC IMAGE Routine 05/18/2023 3:00 PM EDT PERIODIC ORAL EVALUATION - ESTABLISHED PATIENT Routine 05/18/2023 3:00 PM EDT ZZZ HISTORICAL HIV AB/AG Routine 05/14/2021 8:16 AM EDT ZZZ HISTORICAL HEPATITIS C AB W/REFL TO HCV RNA, QN, PCR Routine 02/14/2020 2:48 PM EST HPV MRNA E6/E7 Routine 01/29/2020 2:43 PM EST THINPREP PAP Routine 01/29/2020 2:43 PM EST from Last 3 Months or Most Recently Relevant to Health Maintenance Results * (ABNORMAL) POCT Urinalysis (11/10/2024 12:33 [...] Media Lot # [id number] Lot# Expiration Date ,026 Urine 11/10/2024 12:3 3 PM EDT Queta Osorio MD POINT OF CARE TEST ENTER /EDIT ORDERABLES Final Result * BI Mammogram Screening Tomosynthesis Bilateral (09/21/2023 3:00 PM EDT) Anatomical Region Laterality Modality Breast Bilateral Mammography 09/21/2023 3:00 PM EDT Narrative 10/18/2023 7:41 AM EDT [facility] [place], [place] [address] Mammography Report Signed Patient: Olga Lassiter MR#: [id number] : 1975 Acct:[id number] Age/Sex: 48 / F ADM Date: 09/21/23 Loc: HO.MAMMO Attending Dr: Meredith Rm MD Ordering Physician: Meredith Rm MD Results: 1Ne gative Date of Service: 09/21/23 Follow Up: 1 Year From Orig inal Mammogram Procedure(s): MM tomosynthesis screening BI Accession Number(s): [id number] cc: Meredith Rm MD EXAMINATION: MM SCREENING DIGITAL BREAST TOMOSYNTHESIS, BILATERAL CLINICAL INFORMATION: Screening. Asymptomatic. COMPARISON: Mammography: This study is compared with prior exams dating back to 2019. TECHNIQUE: Digital breast tomosynthesis is performed in both the craniocaudal and mediolateral oblique views along with computer-aided detection (CAD). Synthesized 2D images are generated from the tomosynthesis. FINDINGS: There are scattered areas of fibroglandular density (ACR BI-RADS breast composition Category b). There are no significant masses, abnormal calcifications, or other abnormalities. MM/MM tomosynthesis screening BI IMPRESSION: No mammographic evidence of malignancy. ASSESSMENT: BI-RADS BI-RADS 1 - Negative RECOMMENDATION: Routine annual mammography screening. 1 year F/U This examination should not preclude the clinical evaluation of a suspicious palpable abnormality. This patient's information was entered into a reminder system with a target due date for their next mammogram. Electronically signed by: Joanna Ruggiero MD 10/18/2023 07:38 AM EDT Dictated By: Joanna Ruggiero MD Signed By: <Electronically signed by Jonana Ruggiero MD in OV> 10/18/23 0738 DD/ 1500 TD/TT: 09/21/23 1540 Dog Barber: Procedure Note Donotuseinterpreter, Image - 10/18/2023 [facility] [address] [place] [address] Mammography Report Signed Patient: Petey Lassiter#: [id number] : 1975Acct:[id number] Age/Sex: 48 / FADM Date: 09/21/23 Loc: [facility] Attending Dr: Meredith Rm MD Ordering Physician: Meredith Rm MDResults: 1Ne gative Date of Service: 09/21/23Follow Up: 1 Year From Orig inal Mammogram Procedure(s): MM tomosynthesis screening BI Accession Number(s): [id number] cc: Meredith Rm MD EXAMINATION: MM SCREENING DIGITAL BREAST TOMOSYNTHESIS, BILATERAL CLINICAL INFORMATION: Screening. Asymptomatic. COMPARISON: Mammography: This study is compared with prior exams dating back to 2019. TECHNIQUE: Digital breast tomosynthesis is performed in both the craniocaudal and mediolateral oblique views along with computer-aided detection (CAD). Synthesized 2D images are generated from the tomosynthesis. FINDINGS: There are scattered areas of fibroglandular density (ACR BI-RADS breast composition Category b). There are no significant masses, abnormal calcifications, or other abnormalities. MM/MM tomosynthesis screening BI IMPRESSION: No mammographic evidence of malignancy. ASSESSMENT: BI-RADS BI-RADS 1 - Negative RECOMMENDATION: Routine annual mammography screening. 1 year F/U This examination should not preclude the clinical evaluation of a suspicious palpable abnormality. This patient's information was entered into a reminder system with a target due date for their next mammogram. Electronically signed by: Joanna Ruggiero MD 10/18/2023 07:38 AM EDT RP Dictated By: Joanna Ruggiero MD Signed By: <Electronically signed by Joanna Ruggiero MD in OV> 10/18/23 0738 DD/ 1500 TD/TT: 09/21/23 1540 Dog Barber: eMredith Rm MD IM BI PROCEDURES Final Resul t * HIV AB/AG (05/14/2021 8:16 AM EDT) Pathologist [facility] HIV AB/AG Nonreactive Nonreactive [facility] Comment: HIV-1 p24 Ag and/or HIV-1/HIV-2 Ab not detected. A test result that is nonreactive does not exclude the possibility of exposure to or infection with HIV-1 and/or HIV-2. Nonreactive results in this assay for individuals with prior exposure to HIV-1 and/or HIV-2 may be due to antigen and antibody levels that are below the limit of detection of this assay. The [employer] HIV Ag/Ab Combo assay result and supplemental assay results should be interpreted in conjunction with the patient's clinical presentation, history and other laboratory results. If the results are inconsistent with clinical evidence, additional testing is suggested to confirm the result. 05/14/2021 8:16 AM EDT us Historical Provider HISTORICAL/NON ORDERABLE LABS Final Result [facility] [address] [place], [place] [id number], * HEPATITIS C AB W/REFL TO HCV RNA, QN, PCR (02/14/2020 2:48 PM EST) HEPATITIS C ANTIBODY NON-REACT CARLOS A NON-REACT CARLOS A [facility] INDEX 0.03 <1.00 [facility] Comment: HCV antibody was non-reactive. There is no laboratory evidence of HCV infection. In most cases, no further action is required. However, if recent HCV exposure is suspected, a test for HCV RNA (test code 08477) is suggested. For additional information please refer to http://education.SellStage/faq/VAZ98s0 (This link is being provided for informational/ educational purposes only.) 02/14/2020 2:48 PM EST Meredith Rm MD HISTORICAL/NON ORDERABLE LABS Final Result [facility] [address] [place] [address], * THINPREP PAP (01/29/2020 2:43 PM EST) Clinical Information: None given [facility] COMMENT SEE COMMENT [facility] Comment: EXPLANATORY NOTE: The Pap is a screening test for cervical cancer. It is not a diagnostic test and is subject to false negative and false positive results. It is most reliable when a satisfactory sample, regularly obtained, is submitted with relevant clinical findings and history, and when the Pap result is evaluated along with historic and current clinical information. Gear Technician : SEE COMMENT [facility] Comment: RK, CT(ASCP) CT screening location: [address] [address] Interpretation/R esult: Negative for intraepithelial lesion or malignancy. [facility] LMP: NONE [facility]IV[facility] Prev. BX: NONE [facility] Prev. PAP: NONE [facility] SOURCE: None given [facility] Statement Of Adequacy: SEE COMMENT [facility] Comment: Satisfactory for evaluation. Endocervical/transformation zone component present. Age and/or menstrual status not provided 01/29/2020 2:43 PM EST Katheryn Helm [facility] PATHOLOGY ORDERABLES Final Result Performing Organization Address [facility] de Phone Number [facility] [address] * HPV mRNA E6/E7 (01/29/2020 2:43 PM EST) HPV nRNA E6/E7 Not Detected Not Detected [facility] Comment: This test was performed using the APTIMA HPV Assay ([employer] This assay detects E6/E7 viral messenger RNA (mRNA) from 14 high-risk HPV types (16,18,31,33,35,39,45,51,52,56,58,59,66,68). The analytical performance characteristics of this assay have been determined by [employer]. The modifications have not been cleared or approved by the FDA. This assay has been validated pursuant to the CLIA regulations and is used for clinical purposes. 01/29/2020 2:43 PM EST Katheryn Helm [facility] BLOOD ORDERABLES Velia l Result Performing Organization Address [facility] de Phone Number [facility] [address] from Last 3 Months or Most Recently Relevant to Health Maintenance Insurance [facility] [place] [employer] Care Teams Restaurant Crew Person Relationship Specialty Start Date End Date Meredith Rm MD [address] [place] [id number] PCP - General Family Medicine 02/14/18
--- OUTSIDE RECORDS SUMMARY | 2024-11-10 13:57 | XMS_ITS | Encounter Summary ---
Author Organization [employer] Address [address] [facility] 7t [place] [address] Care Team Providers Care Corporate Risk Analyst Name Role Phone Meredith Rm MD Primary Care Provider [phone] Reason for Visit * Reason Onset Date Comments triage 06/22/2022 Encounter Details Date Type Department Care Team ([facility] st Contact Info) Description 06/22/2022 Telephone [facility] [address] [place], [place] [phone] Meredith Rm MD [address] [place], [place] [phone] triage Social History Tobacco Use Types Packs/Day Years Used Date Smoking Tobacco: Never Assessed Comments Unknown Sex and Gender Information Value Date Recorded Sex Assigned at Female 12/14/2021 10:17 AM EDT Legal Sex Female 10:17 AM EDT Gender Identity Female 12/14/2021 10:17 AM EDT Sexual Orientation Straight 12/14/2021 10 :17 AM EDT documented as of this encounter Miscellaneous Notes * Telephone Encounter - Jeannette Olvera RN - 06/22/2022 12:57 PM EDT Triage call Pt reports sinus symptoms which come every time this year. Pt has hoarse voice, nasal congestion with greenish drainage, post nasal drip, and cough. Pt reports that antibiotics and prednisone are ordered every year at this time. Pt is taking tylenol regularly to keep from getting the headache. Neg for headache, fever at this time. Offered Pt appt today at 345Pm but declined offered apt tomorrow morning but declined. Apt is tele visit with PCP per Pt preference at 100pm 06/24. Pt agrees with this plan and aware of home care advised. Protocol Used: Sinus Pain or Congestion (Adult) Protocol-Based Disposition: See in Office or Video Visit Today or Tomorrow Video visit offered and caller accepted Positive Triage Question: * Patient wants to be seen * All higher-acuity triage questions were negative Care Advice Discussed: * Reassurance and Education - Colds and Sinus Congestion * For a Runny Nose - Blow Your Nose * Hydration * Expected Course * Reasons To Call Back - Severe pain persists over 2 hours after pain medicine - Sinus pain persists over 1 day after using nasal washes - Sinus congestion (fullness) persists over 10 days - Fever lasts over 3 days - You become worse * Telephone Encounter - Uzma Rebollar - 06/22/2022 12:23 PM EDT Symptom: Sinus Symptoms Outcome: Schedule an appointment to be seen within 24 hours Reason: Caller denied all higher acuity questions The caller accepted this outcome documented in this encounter Plan of Treatment Upcoming Encounters Date Type Department Care Team (Late st Contact Info) Description 11/14/2024 3:30 PM EDT Office Visit [facility] MED[facility]INE [address] [place] [address] Katheryn Helm CNM [address] [place] [address] 12/05/2024 3:00 PM EDT Clinical Support [facility] MED & PED[facility] [address] [place] [address] 01/17/2025 3:15 PM EST Office Visit [facility] & PEDS [address] [place] [address] Meredith Rm MD [address] [place] [address] documented as of this encounter Visit Diagnoses Not on filedocumented in this encounter Care Teams Corporate Risk Analyst Relationship Specialty Start Date End Date Meredith Rm MD [address] [place] [address] PCP - General Family Medicine 02/14/18 documented as of this encounter
--- OUTSIDE RECORDS SUMMARY | 2024-11-10 13:57 | XMS_ITS | Encounter Summary ---
Author Organization [employer] Address [address] [facility] 7t [place] [address] Care Team Providers Care Egg Processing Supervisor Name Role Phone Meredith Rm MD Primary Care Provider [phone] Reason for Visit * Reason Onset Date Comments Call Back Request 11/09/2024 Encounter Details Date Type Department Care Team ([facility] Contact Info) Description 11/09/2024 Telephone [facility] CH[facility] MED & PEDS [address] [place], [place] [phone] Meredith Rm MD [address] [place] [address] Call Back Request Social History Tobacco Use Types Packs/Day Years [...] encounter Miscellaneous Notes * Telephone Encounter - Mario Berg - 11/09/2024 9:29 AM EDT Tc from pt requesting a call back in regards to an incident that the does not agree with. Contact pt at [phone] documented in this encounter Plan of Treatment Upcoming Encounters Date Type Department Care Team (Late st Contact Info) Description 11/14/2024 3:30 PM EDT Office Visit [facility] MEDICINE [address] [place] [address] Katheryn Helm, ROSALES [address] [place] [address] 12/05/2024 3:00 PM EDT Clinical Support [facility] MED & PEDS [address] [place] [address] 01/17/2025 3:15 PM EST Office Visit [facility] MED [facility] P[facility] [address] [place] [address] Meredith Rm MD [address] [place] [address] documented as of this encounter Visit Diagnoses Not on filedocumented in this encounter Care Teams Egg Processing Supervisor Relationship Specialty Start Date End Date Meredith Rm MD [address] [place] [address] PCP - General Family Medicine 02/14/18 documented as of this encounter
--- OUTSIDE RECORDS SUMMARY | 2024-11-10 13:57 | XMS_ITS | Encounter Summary ---
Author Organization [employer] Address [address] [place] [address] 7 [place] [address] Care Team Providers Care Fisher Lobster Name Role Phone Meredith Rm MD Primary Care Provider [phone] Reason for Visit * Reason Comments Med Change Request Encounter Details Date Type Department Care Team ([facility] Contact Info) Description 06/24/2022 Refill [facility] MED & PEDS [address] [place] [address] Merediht Rm MD [address] [place] [address] Social History Tobacco Use Types Packs/Day Years Used Date Smoking Tobacco: Never Passive Smoke Exposure: Never Smokeless Tobacco: Never Comments Unknown Sex and Gender Information Value Date Recorded Sex Assigned at Female 12/14/2021 10:17 AM EDT Legal Sex Female 10:17 AM EDT Gender Identity Female 12/14/2021 10:17 AM EDT Sexual Orientation Straight 12/14/2021 10 :17 AM EDT documented as of this encounter Plan of Treatment Upcoming Encounters Date Type Department Care Team ([facility] Contact Info) Description 11/14/2024 3:30 PM EDT Office Visit [facility] MEDICINE [address] [place] [address] Katheryn Helm CNM [address] [place] [address] 12/05/2024 3:00 PM EDT Clinical Support [facility] MED & PEDS [address] [place] [address] 01/17/2025 3:15 PM EST Office Visit [facility]ED[facility] [address] [place] [address] Meredith Rm MD [address] [place] [address] documented as of this encounter Visit Diagnoses Not on filedocumented in this encounter Care Teams Fisher Lobster Relationship Specialty Start Date End Date Meredith Rm MD [address] [place] [address] PCP - General Family Medicine 02/14/18 documented as of this encounter
--- OUTSIDE RECORDS SUMMARY | 2024-11-10 13:57 | XMS_ITS | Encounter Summary ---
Author Organization [employer] Address [address] [facility] 7t [place] [address] Care Team Providers Care Raftsman Name Role Phone Meredith Rm MD Primary Care Provider [phone] Encounter Details Date Type Department Care Team (Late Contact Info) Description 01/29/2022 Abstract [facility] ADULT DENTAL [address] [place], [place] [phone] Marco Fiore DDS [address] [place], [place] [phone] Social History Tobacco Use Types Packs/Day Years [...] Description 11/14/2024 3:30 PM EDT Office Visit [facility] MEDICINE [address] [place] [address] Katheyrn Helm CNM [address] [place] [address] 12/05/2024 3:00 PM EDT Clinical Support [facility] MED & PEDS [address], [place] [phone] 01/17/2025 3:15 PM EST Office Visit [facility] MED & PEDS [address] [place] [address] Meredith Rm MD [address] [place] [address] documented as of this encounter Visit Diagnoses Not on filedocumented in this encounter Care Teams Raftsman Relationship Specialty Start Date End Date Meredith Rm MD [address] [place] [address] PCP - General Family Medicine 02/14/18 documented as of this encounter
--- OUTSIDE RECORDS SUMMARY | 2024-11-10 13:57 | XMS_ITS | Encounter Summary ---
Author Organization [employer] [facility] Address [address] [facility] [address] h Floor [place] [id number] Care Team Providers Care Cardiac Exercise Physiologist Name Role Phone Meredith Rm MD Primary Care Provider [phone] Encounter Details Date Type Department Care Team (Latest Contact Info) Description 08/12/2020 Abstract [facility] CONVERSIONS Dental, Provider, DDS Social History Tobacco [...] Description 11/14/2024 3:30 PM EDT Office Visit [facility] MEDICINE [address] [place] [address] Katheryn Helm, CNM [address] [place] [address] 12/05/2024 3:00 PM EDT Clinical Support [facility] MED & PEDS [address] [place] [address] 01/17/2025 3:15 PM EST Office Visit [facility] MED & PEDS [address] [place] [address] Meredith Rm MD [address] [place] [address] documented as of this encounter Visit Diagnoses Not on filedocumented in this encounter Care Teams Cardiac Exercise Physiologist Relationship Specialty Start Date End Date Meredith Rm MD [address] [place] [address] PCP - General Family Medicine 02/14/18 documented as of this encounter
--- OUTSIDE RECORDS SUMMARY | 2024-11-10 13:57 | XMS_ITS | Encounter Summary ---
Author Organization [employer] [facility] Address [address] [facility] [address] h Floor [place] [id number] Care Team Providers Care Press Tender Incendiary Grenade Name Role Phone Meredith Rm MD Primary Care Provider [phone] Encounter Details Date Type Department Care Team (Latest Contact Info) Description 12/25/2020 Abstract [facility] CONVERSIONS Dental, Provider, DDS Social History [...] 3:30 PM EDT Office Visit [facility] MEDICINE [address] [place] [address] Katheryn Helm, CNM [address] [place] [address] 12/05/2024 3:00 PM EDT Clinical Support [facility] MED & PEDS [address] [place] [address] 01/17/2025 3:15 PM EST Office Visit [facility] MED [facility] PEDS [address] [place] [address] Meredith Rm MD [address] [place] [address] documented as of this encounter Visit Diagnoses Not on filedocumented in this encounter Care Teams Press Tender Incendiary Grenade Relationship Specialty Start Date End Date Meredith Rm MD [address] [place] [address] PCP - General Family Medicine 02/14/18 documented as of this encounter
== END 2024-11-10 13:56 | disposition home or self-care (01) ==
LOC: HO.HHCLNP 13:55
PROVIDERS: Visit Provider Internal Medicine
DX: R30.0 Dysuria (principal)
CPT/HCPCS: 87086; 87088; 87186

== ENCOUNTER 2024-11-14 19:26 | Outpatient (REF) | payer OTHER, SELFPAY ==
--- OUTSIDE RECORDS SUMMARY | 2024-11-10 12:40 | XMS_ITS | Encounter Summary ---
Author Organization [employer] Address [address] 7[address] [place] [address] Care Team Providers Care Side Trimmer Name Role Phone Meredith Rm MD Primary Care Provider [phone] Reason for Visit * Reason Comments UTI Encounter Details Date Type Department Care Team ([facility] st Contact Info) Description 11/10/2024 12:40 PM EDT Office Visit [facility] [address] [place], [place] [phone] Queta Osorio MD [address] [place] [address] Acute cystitis with hematuria (Primary Dx); Elevated BP without diagnosis of hypertension; Dysuria Social History Tobacco Use Types Packs/Day Years Used Date Smoking Tobacco: Every Day Cigarettes Passive Smoke Exposure: Current Smokeless Tobacco: Never Housing Stability Answer Date Recorded What is your housing situation today? I have harm[place]t [place] 03/08/[address] you [...] tablet 1 ergocalciferol (Vitamin D2) 1.25 MG (46714 UT) capsule Take 1 capsule (1.25 mg) [...] Care Team (Late st Contact Info) Description 12/05/2024 3:00 PM EDT Clinical Support [facility] [address] [place] [address] 01/17/2025 3:15 PM EST Office Visit [facility] [address] [place] [address] Meredith Rm MD [address] [place] [address] documented as of this encounter Procedures Procedure Name Priority Date/Time Associated Diagnosis Comments CULTURE, URINE, ROUTINE Routine 11/10/2024 12:35 PM EDT Dysuria POCT URINALYSIS DIPSTICK Routine 11/10/2024 12:33 PM EDT Dysuria documented in this encounter Results * Culture, Urine, Routine (11/10/2024 12:35 PM EDT) Urine Urine specimen obtained by clean catch procedure / Unknown 11/10/2024 12:35 PM EDT 11/10/2024 1:56 PM EDT Comment:UACC Narrative [facility] - 11/12/2024 7:31 AM EDT Escherichia coli Quant > 100,000 cfu/mL Escherichia coli: Ampicillin 4(S) Escherichia coli: Cefazolin (Urine) <=1(S) Escherichia coli: Cefepime <=0.12(S) Escherichia coli: Ceftriaxone <=0.25(S) Escherichia coli: Ciprofloxacin <=0.06(S) Escherichia coli: Gentamicin <=1(S) Escherichia coli: Nitrofurantoin <=16(S) Escherichia coli: Trimethoprim/Sulfamethoxazole <=20(S) Specimen Source: Urine clean catch Queta Osorio MD LAB MICROBIOLOGY - GENER AL ORDERABLES Final Result [facility] [address] [place] [phone] * (ABNORMAL) POCT Urinalysis (11/10/2024 12:33 PM [...] Media Lot # [id number] Lot# Expiration Date [id number] Urine 11/10/2024 12:3 3 PM EDT Queta Osorio MD POINT OF CARE TEST ENTER /EDIT ORDERABLES Final Result documented in this encounter Visit Diagnoses Diagnosis Acute cystitis with hematuria- Primary Elevated BP without diagnosis of hypertension Dysuria documented in this encounter Care Teams Side Trimmer Relationship Specialty Start Date End Date Meredith Rm MD [address] [place] [phone] PCP - General Family Medicine 02/14/18 documented as of this encounter
--- OUTSIDE RECORDS SUMMARY | 2024-11-14 15:30 | XMS_ITS | Encounter Summary ---
Author Organization [employer] Address [address] [facility] 7t [place] [address] Care Team Providers Care Mixing Tank Operator Name Role Phone Meredith Rm MD Primary Care Provider [phone] Reason for Visit * Reason Comments CHW - Office Visit Encounter Details Date Type Department Care Team ([facility] st Contact Info) Description 11/14/2024 3:30 PM EDT Office Visit [facility] MEDICINE [address] [place], [place] [phone] Katheryn Helm CNM [address] [place] [address] Dysuria (Primary Dx); Vasomotor symptoms due to menopause Social History Tobacco Use Types Packs/Day Years Used Date Smoking Tobacco: Every Day Cigarettes Passive Smoke Exposure: Current Smokeless Tobacco: Never Tobacco Cessation:Ready to Q uit: Not Asked; Counseling Given: Not Answered Depression Answer Date Recorded Patient Health Questionnaire-9 Score 2 11/14/2024 Patient Health Questionnaire-9 Score 2 11/14/2024 Last PHQ-9: Questionnaire Data Not on file 1 Housing Stability Answer Date Recorded What is your housing situation today? I have [employer] [place] 11/14/[address] you li ve. Do you have problems with any of the following? None of the above 11/14/2024 Food Insecurity Answer Date Recorded Within the past 12 months, y ou worried that your food would run out before you got money to buy more: Never True 11/14/2024 Within the past 12 months,th e food you bought just didn't last and you didn't have enough money to get more: Never True 02/2024 Transportation Answer Date Recorded In the past 12 months, has l ack of transportation kept you from medical appts, meetings, work or from getting things needed for daily living? No 11/14/2024 Utilities Answer Date Recorded In the past 12 months, has t he electric, gas, oil or water company threatened to shut off services in your home? No 11/14/2024 Depression Answer Date Recorded Patient Health Questionnaire-2 Score 0 11/14/2024 Internet Access Answer Date Recorded Internet Access Q1 Yes 11/14/2024 Internet Access Q2 Not on file 11/14/2024 Comments No Sex and Gender Information Value Date Recorded Sex Assigned at Female 12/14/2021 10:17 AM EDT Legal Sex Female 10:17 AM EDT Gender Identity Female 12/14/2021 10:17 AM EDT Sexual Orientation Straight 12/14/2021 10 :17 AM EDT documented as of this encounter Last Filed Vital Signs Vital Sign Reading Time Taken Comments Blood Pressure 120/80 11/14/2024 4:03 PM EDT Pulse 75 11/14/2024 4:03 PM EDT Temperature 37 C (98.6 F) 11/14/2024 4:03 PM EDT Respiratory Rate 16 11/14/2024 4:03 PM EDT Oxygen Saturation 98% 11/14/2024 4:03 PM EDT Inhaled Oxygen Concentration - - Weight 73.3 kg (161 lb 9.6 oz) 11/14/2024 4:03 P M EDT Height - - Body Mass Index 28.63 11/10/2024 12:30 PM EDT documented in this encounter Functional Status * Over the past 2 weeks, how often have you been bothered by any of the following problems? Question Answer Date of Assessment Author Patient Health Questionnaire-2 Score 0 02/2024 4:04 PM EDT Va Howell [place] * Little interest or pleasure in doing things Answer Date of Assessment Author Not at all 11/14/2024 4:04 PM EDT Va Howell [place] * Feeling down, depressed, or hopeless Answer Date of Assessment Author Not at all 11/14/2024 4:04 PM EDT Va Howell [place] * Trouble falling or staying asleep, or sleeping too much Answer Date of Assessment Author Several days 11/14/2024 4:04 PM EDT Va Howell [place] * Feeling tired or having little energy Answer Date of Assessment Author Several days 11/14/2024 4:04 PM EDT Va Howell [place] * Poor appetite or overeating Answer Date of Assessment Author Not at all 11/14/2024 4:04 PM EDT Va Howell [place] * Feeling bad about yourself - or that you are a failure or have let yourself or your family down Answer Date of Assessment Author Not at all 11/14/2024 4:04 PM EDT Va Howell [place] * Trouble concentrating on things, such as reading the newspaper or watching television Answer Date of Assessment Author Not at all 11/14/2024 4:04 PM EDT Va Howell [place] * Moving or speaking so slowly that other people could have noticed? Or the opposite - being so fidgety or restless that you have been moving around a lot more than usual. Answer Date of Assessment Author Not at all 11/14/2024 4:04 PM EDT Va Howell [place] * Thoughts that you would be better off or hurting yourself in some way Answer Date of Assessment Author Not at all 11/14/2024 4:04 PM EDT Va Howell [place] * Patient Health Questionnaire-9 Score Answer Date of Assessment Author 2 11/14/2024 4:04 PM EDT Va Howell [place] documented as of this encounter Progress Notes * Katheryn Helm CNM - 11/14/2024 3:30 PM EDT Answers submitted by the patient for this visit: Abdominal Pain Questionnaire (Submitted on 11/13/2024) Chief Complaint: Abdominal pain Chronicity: recurrent Onset: in the past 7 days Onset quality: gradual Frequency: daily Progression since onset: unchanged Pain location: suprapubic region Pain - numeric: 6/10 Pain quality: sharp Radiates to: LUQ anorexia: No arthralgias: Yes belching: No constipation: No diarrhea: No dysuria: No fever: No flatus: No frequency: Yes headaches: Yes hematochezia: No hematuria: No melena: Yes myalgias: Yes nausea: Yes weight loss: No vomiting: No Aggravated by: nothing Relieved by: being still * Katheryn Helm CNM - 11/14/2024 3:30 PM EDT Subjective Patient ID: Olga Lassiter is a 49 y.o. female who presents for UTI symptoms Treated with Bactrim x 5 days for bird sensitive e coli UTI 11/10/2024. On last day of antibiotics. Still notes urinary symptoms. Notes odor which she believes is due to UTI. Denies any vaginal discharge, itching, dryness or odor. One previous UTI in the past year. Denies history of kidney stones or pyelo. 1 AMAB partner a few months ago, no vaginal sex, no concerns for STI. Pap NIL/HPV neg 01/2020. Mammogram BIRADS 1, cat b 09/2023. Menopausal x 1.5 years. On menopausal hormone therapy, Climera 0.025mg patch and oral progesterone. Still notes vasomotor symptoms and disrupted sleep. Notes chest pain which she attributes to costochondritis. Denies ACHES otherwise. Notes sour taste in mouth and epigastric pain as well. Would like routine CPE with labs, was told her PCP doesn't take her insurance. Has upcoming appointment with Dr Rm in January. Abdominal Pain This is a recurrent problem. The current episode started in the past 7 days. The onset quality is gradual. The problem occurs daily. The problem has been unchanged. The pain is located in the suprapubic region. The pain is at a severity of 6/10. The quality of the pain is sharp. The abdominal pain radiates to the LUQ. Associated symptoms include arthralgias, frequency, headaches, melena, myalgiasand nausea. Pertinent negatives include no anorexia, belching, constipation, diarrhea, dysuria, fever, flatus, hematochezia, hematuria, vomiting or weight loss. Nothing aggravates the pain. The pain is relieved by Being still. Review of Systems Constitutional: Negative for chills, fever and weight loss. Gastrointestinal: Positive for abdominal pain, melena and nausea. Negative for anorexia, constipation, diarrhea, flatus, hematochezia and vomiting. Genitourinary: Positive for frequency. Negative for dysuria, hematuria, pelvic pain, vaginal bleeding, vaginal discharge and vaginal pain. Musculoskeletal: Positive for arthralgias and myalgias. Neurological: Positive for headaches. Objective BP 120/80 (BP Location: Left arm, Patient Position: Sitting, BP Cuff Size: Adult) Pulse 75 Temp98.6 ??F (37 ??C) (Oral) Resp 16 Wt 161 lb 9.6 oz (73.3 kg) SpO2 98% BMI 28.63 kg/m?? Physical Exam Constitutional: Appearance: Normal appearance. Abdominal: Tenderness: There is no right CVA tenderness or left CVA tenderness. Neurological: Mental Status: She is alert. Psychiatric: Mood and Affect: Mood normal. Behavior: Behavior normal. Assessment/Plan Diagnoses and all orders for this visit: Dysuria - POCT urinalysis dipstick manually resulted - Culture, Urine, Routine Trace blood on UA, on last day of Bactrim. Previous culture bird sensitive. Will repeat today in light of persistent symptoms and treat as indicated. Stay hydrated. Report worsening symptoms. Consider vaginal estrogen if recurrent UTI. Vasomotor symptoms due to menopause We can trial increasing estrogen patch to 0.0375mg. Replace weekly. Continue current dose of progesterone. Let me know if not helpful in next month or so. Seek care urgently if chest pain, SOB, severe headache, visual changes or calf pain. Advised to go to [facility] or followup with PCP for other health concerns. She requested to speak further with nursing unit manager. She will go to [facility] to see if available. Message sent to Nery Hernandez RN, to expect her, as unable to reach any nurses by phone. Chart routed to PCP as FYI as I increased estradiol dose. Other orders - estradiol (Climara) 0.0375 MG/24HR; Place 1 patch on the skin 1 (one) time per week. documented in this encounter Plan of Treatment Upcoming Encounters Date Type Department Care Team ([facility] st Contact Info) Description 12/05/2024 3:00 PM EDT Clinical Support [facility] MED & PEDS [address] [place] [address] 01/17/2025 3:15 PM EST Office Visit [facility] MED & PEDS [address] [place] [address] Meredith Rm MD [address] [place] [address] Scheduled Orders Name Type Priority Associated Diagnoses Orde r Schedule Culture, Urine, Routine Microbiology Routine Dysuria Ordered: 11/14/2024 documented as of this encounter Procedures Procedure Name Priority Date/Time Associated Diagnosis Comments POCT URINALYSIS DIPSTICK Routine 11/14/2024 4:23 PM EDT Dysuria documented in this encounter Results * (ABNORMAL) POCT urinalysis dipstick manually resulted (11/14/2024 4:23 PM EDT) Color, UA Yellow Clarity, UA Clear Glucose, UA Negative Bilirubin, UA Negative Ketones, UA Negative Spec Grav, UA 1.015 Blood, UA Positive(A) Negative, None Detected Comment:trace pH, UA 7.0 Protein, UA Negative Urobilinogen, UA 0.2 Leukocytes, UA Negative Negative, Rare, Trace Nitrite, UA Negative Negative, None Detected Appearance, UA yellow QC Media Lot # [id number] Lot# Expiration Date [id number] Urine 11/14/2024 4:23 PM EDT Katheryn CABA POINT OF CARE TEST ENTER/ EDIT ORDERABLES Final Result documented in this encounter Visit Diagnoses Diagnosis Dysuria- Primary Vasomotor symptoms due to menopause documented in this encounter Additional Health Concerns Assessment Noted Time PHQ-9 Depression Total Score: 2 11/15/19 25 4:04 PM EDT documented as of this encounter Care Teams Mixing Tank Operator Relationship Specialty Start Date End Date Meredith mR MD [address] [place] [address] PCP - General Family Medicine 02/14/18 documented as of this encounter
--- OUTSIDE RECORDS SUMMARY | 2024-11-14 19:28 | XMS_ITS | Encounter Summary ---
Author Organization [employer] Address [address] [facility] [address] [address]t [place] [address] Care Team Providers Care Carrier Operator Name Role Phone Meredith Rm MD Primary Care Provider [phone] Encounter Details Date Type Department Care Team (Late st Contact Info) Description 11/13/2024 Telephone [facility] [address] [place], [place] [phone] Va Howell [place] Social History Tobacco Use Types Packs/Day Years Used Date Smoking Tobacco: Every Day Cigarettes Passive Smoke Exposure: Current Smokeless Tobacco: Never Depression Answer Date Recorded Patient Health Questionnaire-9 [...] Access Q2 Not on file 11/14/2024 Comments Unknown Sex and Gender Information Value Date Recorded Sex Assigned at Female 12/14/2021 10:17 AM EDT Legal Sex Female 10:17 AM EDT Gender Identity Female 12/14/2021 10:17 AM EDT Sexual Orientation Straight 12/14/2021 10 :17 AM EDT documented as of this encounter Miscellaneous Notes * Telephone Encounter - Va Howell [place] - 11/13/2024 2:40 PM EDT Chart Prep Labs: done Images: not applicable Referrals: not applicable Vaccines due: Flu, PCV20, and Hep B Screenings: colonoscopy Overdue care gaps: SBIRT, SDOH, and PHQ-9 documented in this encounter Plan of Treatment Upcoming Encounters Date Type Department Care Team ([facility] st Contact Info) Description 12/05/2024 3:00 PM EDT Clinical Support [facility] MED & PEDS [address] [place] [address] 01/17/2025 3:15 PM EST Office Visit [facility] MED & PEDS [address] [place] [address] Meredith Rm MD [address] [place] [address] documented as of this encounter Visit Diagnoses Not on filedocumented in this encounter Care Teams Carrier Operator Relationship Specialty Start Date End Date Meredith Rm MD [address] [place] [address] PCP - General Family Medicine 02/14/18 documented as of this encounter
--- OUTSIDE RECORDS SUMMARY | 2024-11-14 19:28 | XMS_ITS | Clinical Summary ---
Author Organization [employer] Address [address] [facility] 7t [place] [address] Care Team Providers Care Crop Or Grain Farmer Name Role Phone Meredith Rm MD Primary Care Provider [phone] Allergies No known active allergies Medications azelastine (Astelin) 0.1 % nasal spray Administer 1 spray into each nostril 2 times daily. Use in each nostril as directed 30 mL 12 06/25/19 23 Active ergocalciferol (Vitamin D2) 1.25 MG (89403 UT) capsule Take 1 capsule (1.25 mg) [...] DAY 90 tablet 1 07/13/19 25 Active gabapentin (Neurontin) 300 MG capsule TAKE ONE CAPSULE TWICE DAILY 60 capsule 10/17/19 25 Active sulfamethoxazo le-trimethopri m (Bactrim DS) 800-160 MG tablet Take 1 tablet by mouth 2 times daily for 5 days. 10 tablet 11/11/19 25 025 Active estradiol (Climara) 0.0375 MG/24HR Place 1 patch on the skin 1 (one) time per week. 12 patch 11/15/19 25 025 Active gabapentin (Neurontin) 300 MG capsule Take 1 capsule (300 mg) by mouth 2 times daily. 60 capsule 09/19/19 25 025 Discontinued(Re order (will not trigger notification to Pharmacy)) estradiol (Climara) 0.025 MG/24HR APPLY 1 PATCH TOPICALLY ONCE PER WEEK 12 patch 1 09/25/19 25 025 Discontinued(In effective) Active Problems Problem Noted Date Diagnosed Date [...] Encounters Date Type Department Care Team Description 11/14/2024 3:30 PM EDT Office Visit [facility] [address] [place] [address] Katheryn Helm CNM Dysuria (Primary Dx); Vasomotor symptoms due to menopause 11/14/2024 Travel 11/13/2024 Telephone [facility] [address] [place] [address] Va How[place] 11/13/2024 Travel 11/10/2024 12:40 PM EDT Office Visit [facility] [address] [place] [address] Queta Osorio MD Acute cystitis with hematuria (Primary Dx); Elevated BP without diagnosis of hypertension; Dysuria 11/10/2024 Travel 11/09/2024 Telephone [facility] [address] [place] [address] Meredith Rm MD Call Back Request 11/08/2024 Telephone [facility] [address] [place] [address] Meredith Rm MD Nurse Triage 10/13/2024 Refill [facility] [address] [place] [address] Meredith Rm MD 09/22/2024 Refill [facility] [address] [place] [address] Meredith Rm MD 09/18/2024 Refill [facility] [address] [place] [address] Meredith Rm MD 09/18/2024 Telephone [facility] [address] [place] [address] Meredith Rm MD Nurse Triage from Last [...] oz) 11/14/2024 4:03 P M EDT Height 160 cm (5' 3 ) 11/10/2024 12:30 PM EDT Body Mass Index 28.63 11/10/2024 12:30 PM EDT Plan of Treatment Upcoming Encounters Date Type Department Care Team (Late st Contact Info) Description 12/05/2024 3:00 PM EDT Clinical Support [facility]ED[facility] [address] [place] [address] 01/17/2025 3:15 PM EST Office Visit [facility] [address] [place] [address] Meredith Rm MD [address] [place] [address] Health Maintenance Due Date Last Done Comments CT Colonography 1973 Colonoscopy 1973 Colorectal Cancer Screening 1973 Dental Prophylaxis 1973 Dental X-Ray: Full Mouth 1973 FIT DNA/Cologuard 1973 FIT 1973 FOBT 1973 Lipid Panel 1973 Sigmoidoscopy 1973 Family Planning (PISQ) 1988 Hepatitis B Vaccines (1 of 3 - 19+ 3-dose series) 1992 Pneumococcal Vaccine: 50+ Years (1 of 2 - PCV) 1992 Zoster Vaccines (1 of 2) 07/04/2023 Dental Oral Exam 11/18/2023 05/18/2023 Dental X-Ray: Bitewings 05/18/2024 05/18/2023, 05/17 Influenza Vaccine (#1) 2024 , 12/09/2022, 12/11/2021, Additional history exists Cervical Cancer Screening 01/28/2025 HPV/Cotest 01/28/2025 01/29/2020, 10/11/2017 Pap Smear 01/28/2025 01/29/2020 Mammogram 09/20/2025 09/21/2023, 06/0 07/2022, 05/12/2021, Additional history exists Disability Screening 11/13/2025 11/13/2024 Alcohol/Substance Use Screening 11/14/2025 11/14/2024 Depression Screening 11/14/2025 11/14/2024, 11/15/19 25 SDOH Screening 11/14/2025 11/14/2024 Tobacco Screening 11/14/2025 11/14/2024 DTaP/Tdap/Td Vaccines (2 - Td or Tdap) [...] this topic Meningococcal Vaccine Aged Out No brnedon dick eligible based on patient's age to complete this topic RSV under 20 months Aged Out No longe r eligible based on patient's age to complete this topic Rotavirus Vaccines Aged Out No longer eligible based on patient's age to complete this topic Procedures Procedure Name Priority Date/Time Associated Diagnosis Comments POCT URINALYSIS DIPSTICK Routine 11/14/2024 4:23 PM EDT Dysuria CULTURE, URINE, ROUTINE Routine 11/10/2024 12:35 PM [...] to Health Maintenance Results * (ABNORMAL) POCT urinalysis dipstick manually resulted (11/14/2024 4:23 PM EDT) Only the most recent of2 resultswithin the time period is included. Color, UA Yellow Clarity, UA Clear Glucose, UA Negative Bilirubin, UA Negative Ketones, UA Negative Spec Grav, UA 1.015 Blood, UA Positive(A) Negative, None Detected Comment:trace pH, UA 7.0 Protein, UA Negative Urobilinogen, UA 0.2 Leukocytes, UA Negative Negative, Rare, Trace Nitrite, UA Negative Negative, None Detected Appearance, UA yellow QC Media Lot # [id number] Lot# Expiration Date [id number] Urine 11/14/2024 4:23 PM EDT Katheryn Helm CNM POINT OF CARE TEST ENTER/ EDIT ORDERABLES Final Result * Culture, Urine, Routine (11/10/2024 12:35 PM EDT) Urine Urine specimen obtained by clean catch procedure / Unknown 11/10/2024 12:35 PM EDT 11/10/2024 1:56 PM EDT Comment:UACC Narrative [facility] - 11/12/2024 7:31 AM EDT Escherichia coli Quant > 100,000 cfu/mL Escherichia coli: Ampicillin 4(S) Escherichia coli: Cefazolin (Urine) <=1(S) Escherichia coli: Cefepime <=0.12(S) Escherichia coli: Ceftriaxone <=0.25(S) Escherichia coli: Ciprofloxacin <=0.06(S) Escherichia coli: Gentamicin <=1(S) Escherichia coli: Nitrofurantoin <=16(S) Escherichia coli: Trimethoprim/Sulfamethoxazole <=20(S) Specimen Source: Urine clean catch Queta Osorio MD LAB MICROBIOLOGY - GENER AL ORDERABLES Final Result [facility] [address] [place] [phone] * BI Mammogram Screening Tomosynthesis Bilateral (09/21/2023 3:00 PM EDT) Anatomical Region Laterality Modality Breast Bilateral Mammography 09/21/2023 3:00 PM EDT Narrative 10/18/2023 7:41 AM EDT [facility] [address] [place] [address] Mammography Report Signed Patient: Olga Lassiter MR#: [id number] : 1975 Acct:[id number] Age/Sex: 48 / F ADM Date: 09/21/23 Loc: FE Attending Dr: Meredith Rm MD Ordering Physician: Meredith Rm MD Results: 1Ne gative Date of Service: 09/21/23 Follow Up: 1 Year From Orig inal Mammogram Procedure(s): MM tomosynthesis screening BI Accession Number(s): [id number] cc: Meredith Rm MD EXAMINATION: MM SCREENING [...] 10/18/23 0738 DD/ 1500 TD/TT: 09/21/23 1540 Wire Dropper: Procedure Note Donotuseinterpreter, Image - 10/18/2023 [place] [facility] [address] [place] [address] Mammography Report Signed Patient: Petey Lassiter#: [id number] : 1975Acct:[id number] Age/Sex: 48 / FADM Date: 09/21/23 Loc: FE Attending Dr: Meredith Rm MD Ordering Physician: Meredith Rm MDResults: 1Ne gative Date of Service: 09/21/23Follow Up: 1 Year From Orig inal Mammogram Procedure(s): MM tomosynthesis screening BI Accession Number(s): [id number] cc: Meredith Rm MD EXAMINATION: MM SCREENING [...] 10/18/23 0738 DD/ 1500 TD/TT: 09/21/23 1540 Wire Dropper: us Meredith Rm MD IMG BI PROCEDURES Final Resul t * HIV AB/AG (05/14/2021 8:16 AM EDT) HIV AB/AG Nonreactive Nonreactive [facility] Comment: HIV-1 p24 Ag and/or [...] limit of detection of this assay. The Clnie Charging Operator HIV Ag/Ab Combo assay result and supplemental assay results should be interpreted in conjunction with the patient's clinical presentation, history and other laboratory results. If the results are inconsistent with clinical evidence, additional testing is suggested to confirm the result. 05/14/2021 8:16 AM EDT Historical Provider HISTORICAL/NON ORDERABLE LABS Final Result Performing Organization Address [facility] de Phone Number [facility] [address] [place] [address], * HEPATITIS C AB W/REFL TO HCV RNA, QN, PCR (02/14/2020 2:48 PM EST) Pathologist [facility] HEPATITIS C ANTIBODY NON-REACT CARLOS A NON-REACT CARLOS A [facility] INDEX 0.03 <1.00 [facility] Comment: HCV antibody was non-reactive. There is no laboratory evidence of HCV infection. In most cases, no further action is required. However, if recent HCV exposure is suspected, a test for HCV RNA (test code 85376) is suggested. For additional information please refer to http://education.StudyMax/faq/ANA94h7 (This link is being provided for informational/ educational purposes only.) 02/14/2020 2:48 PM EST Meredith Rm MD HISTORICAL/NON ORDERABLE LABS Final Result Performing Organization Address [facility] Phone Number [facility] [address] [place] [address], * THINPREP PAP (01/29/2020 2:43 PM EST) Pathologist [facility] Clinical Information: None given [facility] COMMENT SEE COMMENT [facility]OUND[facility] [...] along with historic and current clinical information. Overnight Babysitter : SEE COMMENT [facility] Comment: RK, CT(ASCP) CT screening location: [place] [address] Interpretation/R esult: Negative for intraepithelial lesion or malignancy. [facility] LMP: NONE [facility]IV[facility] Prev. BX: NONE [facility] Prev. PAP: NONE [facility] SOURCE: None given [facility] Statement Of Adequacy: SEE COMMENT [facility] Comment: Satisfactory for evaluation. Endocervical/transformation zone component present. Age and/or menstrual status not provided 01/29/2020 2:43 PM EST [facility] PATHOLOGY ORDERABLES Final Result Performing Organization Address [facility] de Phone Number [facility] [address] * HPV mRNA E6/E7 (01/29/2020 2:43 PM EST) HPV nRNA E6/E7 Not Detected Not Detected [facility] Comment: This test was performed using the APTIMA HPV Assay ([employer] This assay detects E6/E7 viral messenger RNA (mRNA) from 14 high-risk HPV types (16,18,31,33,35,39,45,51,52,56,58,59,66,68). The analytical performance characteristics of this assay have been determined by [employer]. The modifications have not been cleared or approved by the FDA. This assay has been validated pursuant to the CLIA regulations and is used for clinical purposes. 01/29/2020 2:43 PM EST Katheryn Helm [facility] BLOOD ORDERABLES Velia l Result Performing Organization Address [facility] de Phone Number [facility] [address] from Last 3 Months or Most Recently Relevant to Health Maintenance Insurance [facility] [employer] Care Teams Crop Or Grain Farmer Relationship Specialty Start Date End Date Meredith Rm MD [address] [place] [address] PCP - General Family Medicine 02/14/18
--- OUTSIDE RECORDS SUMMARY | 2024-11-14 19:28 | XMS_ITS | Encounter Summary ---
Author Organization [employer] Address [address] [facility] 7t [place] [address] Care Team Providers Care Invas Tech Name Role Phone Meredith Rm MD Primary Care Provider [phone] Reason for Visit * Reason Onset Date Comments Call Back Request 11/09/2024 Encounter Details Date Type Department Care Team ([facility] Contact Info) Description 11/09/2024 Telephone [facility] [address] [place], [place] [phone] Meredith Rm MD [address] [place] [address] Call Back Request Social History Tobacco Use [...] does not agree with. Contact pt at [phone] documented in this encounter Plan of Treatment Upcoming Encounters Date Type Department Care Team ([facility] st Contact Info) Description 12/05/2024 3:00 PM EDT Clinical Support [facility] [address] [place] [address] 01/17/2025 3:15 PM EST Office Visit [facility] [address] [place] [address] Meredith Rm MD [address] [place] [address] documented as of this encounter Visit Diagnoses Not on filedocumented in this encounter Care Teams Invas Tech Relationship Specialty Start Date End Date Meredith Rm MD [address] [place] [address] PCP - General Family Medicine 02/14/18 documented as of this encounter
--- OUTSIDE RECORDS SUMMARY | 2024-11-14 19:28 | XMS_ITS | Encounter Summary ---
Author Organization [facility] [facility] Address [address] [place] [address] [address] [place] [address] Care Team Providers Care Litigation Assistant Name Role Phone Meredith Rm MD Primary Care Provider [phone] Encounter Details Date Type Department Care Team (Latest Contact Info) Description 12/25/2020 Abstract [facility] CONVERSIONS Dental, Provider, DDS Social History [...] Upcoming Encounters Date Type Department Care Team ( st Contact Info) Description 12/05/2024 3:00 PM EDT Clinical Support [facility]EDS [address] [place] [address] 01/17/2025 3:15 PM EST Office Visit [facility] [address] [place] [address] Meredith Rm MD [address] [place] [address] documented as of this encounter Visit Diagnoses Not on filedocumented in this encounter Care Teams Litigation Assistant Relationship Specialty Start Date End Date Meredith Rm MD [address] [place] [address] PCP - General Family Medicine 02/14/18 documented as of this encounter
--- OUTSIDE RECORDS SUMMARY | 2024-11-14 19:28 | XMS_ITS | Encounter Summary ---
Author Organization [facility] [facility] Address [address] [facility] 7t [place] [address] Care Team Providers Care Stars Analytical Lead Name Role Phone Meredith Rm MD Primary Care Provider [phone] Encounter Details Date Type Department Care Team [...] Description 12/05/2024 3:00 PM EDT Clinical Support [facility] [address] [place] [address] 01/17/2025 3:15 PM EST Office Visit [facility] [address] [place] [address] Meredith Rm MD [address] [place] [address] documented as of this encounter Visit Diagnoses Not on filedocumented in this encounter Care Teams Stars Analytical Lead Relationship Specialty Start Date End Date Meredith Rm MD [address] [place] [address] PCP - General Family Medicine 02/14/18 documented as of this encounter
--- OUTSIDE RECORDS SUMMARY | 2024-11-14 19:28 | XMS_ITS | Encounter Summary ---
Author Organization [employer] Address [address] [facility] 7t [place] [address] Care Team Providers Care Winder Hand Name Role Phone Meredith Rm MD Primary Care Provider [phone] Reason for Visit * Reason Onset Date Comments Results 09/29/2023 Encounter Details Date Type Department Care Team ([facility] Contact Info) Description 09/29/2023 Telephone [facility] [address] [place] [address] Meredith Rm MD [address] [place], [place] [phone] Results Social History Tobacco Use Types Packs/Day [...] Miscellaneous Notes * Telephone Encounter - Paola lGasgow - 09/30/2023 11:20 AM EDT Tc from pt requesting to speak with whoever is in charge of the clinic , stated again will be calling all day today if she doesn't receive a call back from someone in a higher position. * Telephone Encounter - Mukund Sawyer - 09/29/2023 4:21 PM EDT Incoming call from pt, requesting to speak with a manager placement, comic book writer inform from point of View EULALIO Crandall and Sri will be giving her a call unsure when, Pt advised if issue is not resolved within today, she will be calling again tomorrow all day. * Telephone Encounter - Rolf Cummins - 09/29/2023 12:48 PM EDT Tc from pt returning call and demanding to speak to director of [facility], states they will be seen at a different facility for labs and will come in with results. Pt also stated they will be filing a law suit for the entire [facility] management. Pt was very upset. Insurance Account Representative attempted to get a hold of regional commercial sales manager unable to reach. Please see previous message. Pt stated if no call in 20 min they will be coming in p erson. * Telephone Encounter - Vineet Bentley - 09/29/2023 12:02 PM EDT TC from pt irate and using foul language requesting a call from Dr Rm , Nurse Plastic Top Assembler Julissa ,Continuous Vulcanizing Machine Operator [place]. Pt is threatening call every 10-20 min until gets a response regarding her labs . Also threatening with a wood patternmaker apprentice and pulling 17yrld son from seeing Dr Rm . States will be makingcalls to wood patternmaker apprentice and who ever she needs to, to file a report against [facility] . Pt disconnected call before I could get a word in . * Telephone Encounter - Wing Flaquita RN - 09/29/2023 11:22 AM EDT Tc to pt who was very upset that RN was calling her and was asking for a nurse manager placement. Advised pt that PCP was seeing pt's [...] Pt again requested to speak to a manager placement to file a complaint. Attempted to advise ptto go to ED for reported back pain but was interrupted as pt stated that she would call [place] to file a complaint against everyone she called this morning. Called advised that she could do so if she wanted and that the caller was doing what they could to help as PCP was seeing pts at the moment. Pt then accused the caller of also responsible in her claims of care mismanagement at [facility] as she claimed the caller refused to give the name of the nurse manager placement. Caller had already told the pt that the nurse manager placement was busy and had been told already [...] Description 12/05/2024 3:00 PM EDT Clinical Support [facility] [address] [place] [address] 01/17/2025 3:15 PM EST Office Visit [facility] [address] [place] [address] Meredith Rm MD [address] [place] [address] documented as of this encounter Visit Diagnoses Not on filedocumented in this encounter Care Teams Winder Hand Relationship Specialty Start Date End Date Meredith Rm MD [address] [place] [address] PCP - General Family Medicine 02/14/18 documented as of this encounter
--- OUTSIDE RECORDS SUMMARY | 2024-11-14 19:28 | XMS_ITS | Encounter Summary ---
Author Organization [facility] [facility] Address [address] [place] [address] 7t [place] [address] Care Team Providers Care Director Medical Affairs Name Role Phone Meredith Rm MD Primary Care Provider [phone] Encounter Details Date Type Department Care Team ([facility] Contact Info) Description 01/25/2022 Abstract [facility] [address] [place], [place] [phone] Dental, Provider, DDS Social History Tobacco Use [...] Upcoming Encounters Date Type Department Care Team ([facility] Contact Info) Description 12/05/2024 3:00 PM EDT Clinical Support [facility] & PEDS [address] [place] [address] 01/17/2025 3:15 PM EST Office Visit [facility] [address] [place], [place] [phone] Meredith Rm MD [address] [place] [address] Scheduled Orders Name Type Priority Associated Diagnoses [...] on filedocumented in this encounter Care Teams Director Medical Affairs Relationship Specialty Start Date End Date Meredith Rm MD [address] [place] [address] PCP - General Family Medicine 02/14/18 documented as of this encounter
--- OUTSIDE RECORDS SUMMARY | 2024-11-14 19:28 | XMS_ITS | Encounter Summary ---
Author Organization [employer] Address [address] [facility] 7t [place] [address] Care Team Providers Care Carton Making Machine Operator Name Role Phone Meredith Rm MD Primary Care Provider [phone] Reason for Visit * Reason Onset Date Comments triage 06/22/2022 Encounter Details Date Type Department Care Team ([facility] st Contact Info) Description 06/22/2022 Telephone [facility] [address] [place], [place] [phone] Meredith Rm MD [address] [place], [place] [phone] triage Social History Tobacco Use Types Packs/Day [...] You become worse * Telephone Encounter - zUma Rebollar - 06/22/2022 12:23 PM EDT Symptom: Sinus Symptoms Outcome: Schedule an appointment to be seen within 24 hours Reason: Caller denied all higher acuity questions The caller accepted this outcome documented in this encounter Plan of Treatment Upcoming Encounters Date Type Department Care Team (Late st Contact Info) Description 12/05/2024 3:00 PM EDT Clinical Support [facility] PEDS [address] [place] [address] 01/17/2025 3:15 PM EST Office Visit [facility] [address] [place] [address] Meredith Rm MD [address] [place] [address] documented as of this encounter Visit Diagnoses Not on filedocumented in this encounter Care Teams Carton Making Machine Operator Relationship Specialty Start Date End Date Meredith Rm MD [address] [place] [address] PCP - General Family Medicine 02/14/18 documented as of this encounter
--- OUTSIDE RECORDS SUMMARY | 2024-11-14 19:28 | XMS_ITS | Encounter Summary ---
Author Organization [facility] Address [address] [facility] 7t [place] [address] Care Team Providers Care Hot Dip Plater Name Role Phone Meredith Rm MD Primary Care Provider [phone] Encounter Details Date Type Department Care Team ([facility] Contact Info) Description 01/29/2022 Abstract [facility] [address] [place] [address] Marco Fiore, DDS [address] [place], [place] [phone] Social History Tobacco Use Types Packs/Day Years [...] Upcoming Encounters Date Type Department Care Team ([facility] Contact Info) Description 12/05/2024 3:00 PM EDT Clinical Support [facility] MED & PEDS [address] [place], [place] [phone] 01/17/2025 3:15 PM EST Office Visit [facility]ED[facility] [address] [place] [address] Meredith Rm MD [address] [place] [address] documented as of this encounter Visit Diagnoses Not on filedocumented in this encounter Care Teams Hot Dip Plater Relationship Specialty Start Date End Date Meredith Rm MD [address] [place] [address] PCP - General Family Medicine 02/14/18 documented as of this encounter
--- OUTSIDE RECORDS SUMMARY | 2024-11-14 19:28 | XMS_ITS | Encounter Summary ---
Author Organization [employer] Address [address] [facility] 7[address] [place] [address] Care Team Providers Care Peeler Operator Name Role Phone Meredith Rm MD Primary Care Provider [phone] Reason for Visit * Reason Onset Date Comments Nurse Triage 11/08/2024 Encounter Details Date Type Department Care Team ([facility] Contact Info) Description 11/08/2024 Telephone [facility] [address] [place] [address] Meredith Rm MD [address] [place] [address] Nurse Triage Social History Tobacco Use Types [...] encounter Miscellaneous Notes * Telephone Encounter - Anita Kimbrough RN - 11/12/2024 9:29 AM EDT Sent pt. A text message reminder that OUTSIDE SALES EXECUTIVE appointment. On 11/14/24 at 330pm with Katheryn is at the [facility]. Address written in text. * Telephone Encounter - Fatuma Avila RN - 11/09/2024 10:05 AM EDT Called pt regarding triage of yesterday, spoke to pt. Pt states symptoms are not worse and no acutenew symptoms. Pt requesting appointment in [facility] for possible UTI. Advised nothing available today, [...] PCP wanted her to follow up with OUTSIDE SALES EXECUTIVE. Pt. Also looking for an appointment. With [...] caller accepted this outcome. Contact pt at [phone] documented in this encounter Plan of Treatment Upcoming Encounters Date Type Department Care Team ([facility] st Contact Info) Description 12/05/2024 3:00 PM EDT Clinical Support [facility] MED & PEDS [address] [place] [address] 01/17/2025 3:15 PM EST Office Visit [facility] MED & PEDS [address] [place] [address] Meredith Rm MD [address] [place] [address] documented as of this encounter Visit Diagnoses Not on filedocumented in this encounter Care Teams Peeler Operator Relationship Specialty Start Date End Date Meredith Rm MD [address] [place] [address] PCP - General Family Medicine 02/14/18 documented as of this encounter
--- OUTSIDE RECORDS SUMMARY | 2024-11-14 19:28 | XMS_ITS | Encounter Summary ---
Author Organization [facility] Address [address] [facility] 7t [place] [address] Care Team Providers Care Crew Clerk Name Role Phone Meredith Rm MD Primary Care Provider [phone] Encounter Details Date Type Department Care Team (Latest Contact Info) Description 11/13/2024 Travel Social History Tobacco Use Types Packs/Day [...] Description 12/05/2024 3:00 PM EDT Clinical Support [facility] MED & PEDS [address] [place] [address] 01/17/2025 3:15 PM EST Office Visit [facility] MED & PEDS [address] [place] [address] Meredith Rm MD [address] [place] [address] documented as of this encounter Visit Diagnoses Not on filedocumented in this encounter Care Teams Crew Clerk Relationship Specialty Start Date End Date Meredith Rm MD [address] [place] [address] PCP - General Family Medicine 02/14/18 documented as of this encounter
--- OUTSIDE RECORDS SUMMARY | 2024-11-14 19:28 | XMS_ITS | Encounter Summary ---
Author Organization [facility] Address [address] [place] [address] 7 [place] [address] Care Team Providers Care Handle Assembler Name Role Phone Meredith Rm MD Primary Care Provider [phone] Encounter Details Date Type Department Care Team (Latest Contact Info) Description 01/12/2022 Abstract [facility] CONVERSIONS Dental, Provider, DDS Social History [...] Description 12/05/2024 3:00 PM EDT Clinical Support [facility] MED & PEDS [address] [place] [address] 01/17/2025 3:15 PM EST Office Visit [facility] MED & PEDS [address] [place] [address] Meredith Rm MD [address] [place] [address] documented as of this encounter Visit Diagnoses Not on filedocumented in this encounter Care Teams Handle Assembler Relationship Specialty Start Date End Date Meredith Rm MD [address] [place] [address] PCP - General Family Medicine 02/14/18 documented as of this encounter
--- OUTSIDE RECORDS SUMMARY | 2024-11-14 19:28 | XMS_ITS | Encounter Summary ---
Author Organization [employer] Address [address] [facility] 7t [place] [address] Care Team Providers Care Temper Mill Operator Name Role Phone Meredith Rm MD Primary Care Provider [phone] Reason for Visit * Reason Onset Date Comments Med Refill 04/16/2024 Encounter Details Date Type Department Care Team ([facility] Contact Info) Description 04/16/2024 Refill [facility] MED & PEDS [address] [place], [place] [id number] Meredith Rm MD [address] [place] [address] Social History Tobacco Use Types Packs/Day Years [...] Upcoming Encounters Date Type Department Care Team ([facility] st Contact Info) Description 12/05/2024 3:00 PM EDT Clinical Support [facility] MED & PEDS [address] [place] [address] 01/17/2025 3:15 PM EST Office Visit [facility] MED & PEDS [address] [place] [address] Meredith Rm MD [address] [place] [address] documented as of this encounter Visit Diagnoses Not on filedocumented in this encounter Care Teams Temper Mill Operator Relationship Specialty Start Date End Date Meredith Rm MD [address] [place] [address] PCP - General Family Medicine 02/14/18 documented as of this encounter
--- OUTSIDE RECORDS SUMMARY | 2024-11-14 19:28 | XMS_ITS | Encounter Summary ---
Author Organization [employer] [facility] Address [address] [facility] 7t [place] [address] Care Team Providers Care Funeral Car Chauffeur Name Role Phone Meredith Rm MD Primary Care Provider [phone] Encounter Details Date Type Department Care Team (Latest Contact Info) Description 11/14/2024 Travel Social History Tobacco Use Types Packs/Day [...] AM EDT documented as of this encounter Functional Status * Over the [...] [place] documented as of this encounter Plan of Treatment Upcoming Encounters Date Type Department Care Team (Late st Contact Info) Description 12/05/2024 3:00 PM EDT Clinical Support [facility] MED & PEDS [address] [place] [address] 01/17/2025 3:15 PM EST Office Visit [facility] MED & PEDS [address] [place] [address] Meredith Rm MD [address] [place] [address] documented as of this encounter Visit Diagnoses Not on filedocumented in this encounter Additional Health Concerns Assessment Noted Time PHQ-9 Depression Total Score: 2 11/15/19 25 4:04 PM EDT documented as of this encounter Care Teams Funeral Car Chauffeur Relationship Specialty Start Date End Date Meredith Rm MD [address] [place] [address] PCP - General Family Medicine 02/14/18 documented as of this encounter
--- OUTSIDE RECORDS SUMMARY | 2024-11-14 19:28 | XMS_ITS | Encounter Summary ---
Author Organization [facility] Address [address] [place] [address] 7 [place] [address] Care Team Providers Care Turning Sander Operator Name Role Phone Meredith Rm MD Primary Care Provider [phone] Encounter Details Date Type Department Care Team (Latest Contact Info) Description 08/12/2020 Abstract [facility] CONVERSIONS Dental, Provider, DDS Social History [...] Description 12/05/2024 3:00 PM EDT Clinical Support [facility] MED & PEDS [address] [place] [address] 01/17/2025 3:15 PM EST Office Visit [facility] MED & PEDS [address] [place] [address] Meredith Rm MD [address] [place] [address] documented as of this encounter Visit Diagnoses Not on filedocumented in this encounter Care Teams Turning Sander Operator Relationship Specialty Start Date End Date Meredith Rm MD [address] [place] [address] PCP - General Family Medicine 02/14/18 documented as of this encounter
--- OUTSIDE RECORDS SUMMARY | 2024-11-14 19:28 | XMS_ITS | Encounter Summary ---
Author Organization [facility] [facility] Address [address] [place] [address] 7 [place] [address] Care Team Providers Care Family Law Legal Assistant Name Role Phone Meredith Rm MD Primary Care Provider [phone] Reason for Visit * Reason Comments Med Change Request Encounter Details Date Type Department Care Team ([facility] Contact Info) Description 06/24/2022 Refill [facility] MED & PEDS [address] [place] [address] Meredith Rm MD [address] [place] [address] Social History Tobacco Use Types Packs/Day Years [...] Upcoming Encounters Date Type Department Care Team ([facility] Contact Info) Description 12/05/2024 3:00 PM EDT Clinical Support [facility] MED & PEDS [address] [place] [address] 01/17/2025 3:15 PM EST Office Visit [facility] MED & PEDS [address] [place] [address] Meredith Rm MD [address] [place] [address] documented as of this encounter Visit Diagnoses Not on filedocumented in this encounter Care Teams Family Law Legal Assistant Relationship Specialty Start Date End Date Meredith Rm MD [address] [place] [address] PCP - General Family Medicine 02/14/18 documented as of this encounter
== END 2024-11-14 19:27 | disposition home or self-care (01) ==
LOC: HO.HHCLNP 19:26
PROVIDERS: Visit Provider Advanced Practice Midwife
DX: R30.0 Dysuria (principal)
CPT/HCPCS: 87086; 87088

== ENCOUNTER 2024-11-20 13:38 | Outpatient (REF) | payer OTHER, SELFPAY ==
--- OUTSIDE RECORDS SUMMARY | 2024-11-19 18:00 | XMS_ITS | Encounter Summary ---
Author Organization [employer] Address [address] [facility] 7t [place] [address] Care Team Providers Care Bulldogger Name Role Phone Meredith Rm MD Primary Care Provider [phone] Reason for Referral * Imaging (Routine) - Authorized Specialty Diagnoses / Procedures Referred By Gabriel cummings Referred To Contact Radiology Diagnoses Persistent hematuria Procedures US RENAL BI Shaniqua Engel NP [address] [place] [address] Phone: tel: fax: [address] Phone: tel: fax: Referral ID Status Reason Start Date Expiration Date V isits Requested Visits Authorized [id number] Authorized 11/19/2024 11/19/2025 1 1 Encounter Details Date Type Department Care Team (Late st Contact Info) Description 11/19/2024 6:00 PM EDT Office Visit [facility] [address] [place], [place] [id number] Persistent hematuria (Primary Dx); Urinary frequency; Upper abdominal pain; Abdominal bloating Social History Tobacco Use Types Packs/Day Years [...] Sign Reading Time Taken Comments Blood Pressure 126/85 11/19/2024 6:05 PM EDT Pulse 82 11/19/2024 6:05 PM EDT Temperature 36.9 C (98.5 F) 11/19/2024 6:05 PM EDT Respiratory Rate 18 11/19/2024 6:05 PM EDT Oxygen Saturation 99% 11/19/2024 6:05 PM EDT Inhaled Oxygen Concentration - - Weight 75 kg (165 lb 6 oz) 11/19/2024 6:05 PM ED T Height 160 cm (5' 3 ) 11/19/2024 6:05 PM EDT Body Mass Index 29.29 11/19/2024 6:05 PM EDT documented in this encounter Plan of Treatment Upcoming Encounters Date Type Department Care Team (Late st Contact Info) Description 12/05/2024 3:00 PM EDT Clinical Support [facility] MED & PEDS [address] [facility] [place] [address] 01/17/2025 3:15 PM EST Office Visit [facility] MED & PEDS [address] [place] [address] Meredith Rm MD [address] [place] [address] Scheduled Orders Name Type Priority Associated Diagnoses Orde r Schedule Urinalysis with reflex microscopic Lab Routine Persistent hematuria Expected: 11/19/2024, Expires: 11/19/2025 US RENAL BI Imaging Routine Persistent hematuria Expected: 11/19/2024, Expires: 11/19/2025 Comprehensive Metabolic Panel Lab Routine Upper abdominal pain Expected: 11/19/2024 (Approximate), Expires: 11/19/2025 CBC auto differential Lab Routine Upper abdominal pain Expected: 11/19/2024 (Approximate), Expires: 11/19/2025 Helicobacter pylori Antigen, EIA, Stool Lab Routine Abdominal bloating Expected: 11/19/2024, Expires: 11/19/2025 documented as of this encounter Procedures Procedure Name Priority Date/Time Associated Diagnosis Comments POCT , URINE Routine 11/19/2024 6:56 PM EDT Upper abdominal pain POCT URINALYSIS DIPSTICK Routine 11/19/2024 6:55 PM EDT Urinary frequency documented in this encounter Results * POCT Urine (11/19/2024 6:56 PM EDT) Preg Test, Ur Negative Negative, Indeterminate, None Detected, Invalid, Specimen unsatisfactory for evaluation, Weakly Positive, 2+ QC Media Lot # [id number] Lot# Expiration Date 11302,026 Urine 11/19/2024 6:56 PM EDT Shaniqua Engel NP POINT OF CARE TEST ENTER/EDIT O RDERABLES Final Result * (ABNORMAL) POCT Urinalysis (11/19/2024 6:55 PM EDT) Color, UA Light Yellow Clarity, UA Clear Glucose, UA Negative Bilirubin, UA Negative Ketones, UA Negative Spec Grav, UA 1.015 Blood, UA Positive(A) Negative, None Detected Comment:Trace-intact pH, UA 6.5 Protein, UA Negative Urobilinogen, UA 0.2 Leukocytes, UA Negative Negative, Rare, Trace Nitrite, UA Negative Negative, None Detected Appearance, UA clear QC Media Lot # [id number] Lot# Expiration Date Urine 11/19/2024 6:55 PM EDT [facility] BREAKER MACHINE OPERATOR POINT OF CARE TEST ENTER/EDIT O RDERABLES Final Result documented in this encounter Visit Diagnoses Diagnosis Persistent hematuria- Primary Urinary frequency Upper abdominal pain Abdominal bloating Flatulence, eructation, and gas pain documented in this encounter Additional Health Concerns Assessment Noted Time PHQ-9 Depression Total Score: 2 11/15/19 25 4:04 PM EDT documented as of this encounter Care Teams Bulldogger Relationship Specialty Start Date End Date Meredith Rm MD [address] [place] [address] PCP - General Family Medicine 02/14/18 documented as of this encounter
[2024-11-20 13:53] LABS: Appearance Urine Clear; Glucose Urine UA Negative (Negative); PH 6.5 (5.0-9.0); Specific Gravity - Urine 1.015 (1.005-1.025); UMIC TRIGGER UACC YES
--- OUTSIDE RECORDS SUMMARY | 2024-11-20 16:49 | XMS_ITS | Encounter Summary ---
Author Organization [employer] [facility] Address [address] [place] [address] [address] [place] [address] Care Team Providers Care Laryngologist Name Role Phone Meredith Rm MD Primary Care Provider [phone] Encounter Details Date Type Department Care Team (Latest Contact Info) Description 12/25/2020 Abstract [facility] CONVERSIONS Dental, Provider, DDS Social History Tobacco [...] [facility] MED & PEDS [address] [place] [address] 01/17/2025 3:15 PM EST Office Visit [facility] MED & PEDS [address] [place] [address] Meredith Rm MD [address] [place] [address] documented as of this encounter Visit Diagnoses Not on filedocumented in this encounter Care Teams Laryngologist Relationship Specialty Start Date End Date Meredith Rm MD [address] [place] [address] PCP - General Family Medicine 02/14/18 documented as of this encounter
--- OUTSIDE RECORDS SUMMARY | 2024-11-20 16:49 | XMS_ITS | Clinical Summary ---
Author Organization [employer] Address 75 [facility] 7t [place] [address] Care Team Providers Care Ripsaw Matcher Name Role Phone Meredith Rm MD Primary Care Provider [phone] Allergies No known active allergies Medications azelastine (Astelin) 0.1 % nasal spray Administer 1 spray into each nostril 2 times daily. Use in each nostril as directed 30 mL 12 3 Active ergocalciferol (Vitamin D2) 1.25 MG (82164 UT) capsule Take 1 capsule (1.25 mg) by mouth 1 (one) time per week. 12 capsule 4 Active ibuprofen 600 MG tablet Take 1 tab orally tid with food intake prn pain 90 tablet 4 Active progesterone 100 MG capsule Take 1 capsule (100 mg) by mouth Once per day. 30 capsule 11 5 04/18/19 26 Active cetirizine (ZyrTEC) 10 MG tablet TAKE ONE TABLET EVERY DAY 90 tablet 1 5 Active gabapentin (Neurontin) 300 MG capsule TAKE ONE CAPSULE TWICE DAILY 60 capsule 5 Active estradiol (Climara) 0.0375 MG/24HR Place 1 patch on the skin 1 (one) time per week. 12 patch 5 02/07/20 25 Active nitrofurantoin , macrocrystal-m onohydrate, (Macrobid) 100 MG capsule Take 1 capsule (100 mg) by mouth 2 times daily for 7 days. 14 capsule 5 11/23/19 25 Active metroNIDAZOLE (Flagyl) 500 MG tablet Take 1 tablet (500 mg) by mouth 2 times daily for 7 days. 14 tablet 5 11/27/19 25 Active estradiol (Climara) 0.025 MG/24HR APPLY 1 PATCH TOPICALLY ONCE PER WEEK 12 patch 1 5 11/15/19 25 Discontinu ed(Ineffec tive) sulfamethoxazo le-trimethopri m (Bactrim DS) 800-160 MG tablet Take 1 tablet by mouth 2 times daily for 5 days. 10 tablet 5 11/20/19 25 phenazopyridin e (Pyridium) 200 MG tablet Take 1 tablet (200 mg) by mouth if needed in the morning, at noon, and at bedtime for bladder spasms for up to 2 days. 6 tablet 5 11/20/19 25 Active Problems Problem Noted Date Diagnosed Date [...] Encounters Date Type Department Care Team Description 11/19/2024 6:00 PM EDT Office Visit [facility] [address] [address] Persistent hematuria (Primary Dx); Urinary frequency; Upper abdominal pain; Abdominal bloating 11/19/2024 Orders Only [address] [address] Katheryn Helm CNM 11/19/2024 Results Follow-Up [address] [address] Katheryn Helm CNM Culture, Urine, Routine, POCT urinalysis dipstick manually resulted 11/17/2024 Telephone [facility] [address] [address] Meredith Rm MD change provider 11/15/2024 Orders Only [address] [address] Katheryn Helm CNM 11/14/2024 3:30 PM EDT Office Visit [address] [address] Katheryn Helm CNM Dysuria (Primary Dx); Vasomotor symptoms due to menopause 11/14/2024 Travel 11/13/2024 Telephone [facility] [address] [place] [address] [place] How[place] 11/13/2024 Travel 11/10/2024 12:40 PM EDT Office Visit [facility] [address] [address] Queta Osorio MD Acute cystitis with hematuria (Primary Dx); Elevated BP without diagnosis of hypertension; Dysuria 11/10/2024 Travel 11/09/2024 Telephone [facility] [address] [place] [address] Meredith Rm MD Call Back Request 11/08/2024 Telephone [facility] [address] [place] [address] Meredith Rm MD Nurse Triage 10/13/2024 Refill [facility] [address] [place] [address] Meredith Rm MD 09/22/2024 Refill [facility] [address] [place] [address] Meredith Rm MD 09/18/2024 Refill [facility] [address] [place] [address] Meredith Rm MD 09/18/2024 Telephone [facility] [address] [place] [address] Meredith Rm MD Nurse Triage from Last [...] Mass Index 29.29 11/19/2024 6:05 PM EDT Plan of Treatment Upcoming Encounters Date Type Department Care Team (Late st Contact Info) Description 12/05/2024 3:00 PM EDT Clinical Support [facility] [address] [place] [address] 01/17/2025 3:15 PM EST Office Visit [facility] [address] [place] [address] Meredith Rm MD 505 [place] [address] Health Maintenance Due Date Last Done Comments [...] 11/14/2025 11/14/2024 Depression Screening 11/14/2025 11/14/2024, 11/15/19 SDOH Screening 11/14/2025 11/14/2024 Tobacco Screening 11/19/2025 11/19/2024 DTaP/Tdap/Td Vaccines (2 - Td or Tdap) [...] Routine 11/19/2024 6:55 PM EDT Urinary frequency URINALYSIS, COMPLETE, WITH REFLEX TO CULTURE Routine 11/19/2024 6:40 PM EDT POCT URINALYSIS DIPSTICK Routine 11/14/2024 4:23 PM EDT Dysuria CULTURE, URINE, ROUTINE Routine 11/14/2024 4:20 PM EDT Dysuria CULTURE, URINE, ROUTINE Routine [...] Recently Relevant to Health Maintenance Results * POCT Urine (11/19/2024 6:56 PM EDT) Preg Test, Ur Negative Negative, Indeterminate, None Detected, Invalid, Specimen unsatisfactory for evaluation, Weakly Positive, 2+ QC Media Lot # [id number] Lot# Expiration Date [id number] Urine 11/19/2024 6:56 PM EDT us Shaniqua Engel SAFETY RELIEF VALVE TECHNICIAN POINT OF CARE TEST ENTER/EDIT O RDERABLES Final Result * (ABNORMAL) POCT Urinalysis (11/19/2024 6:55 PM EDT) Only the most recent of3 resultswithin the time period is included. Color, UA Light Yellow Clarity, UA Clear [...] Expiration Date Urine 11/19/2024 6:55 PM EDT [facility] SAFETY RELIEF VALVE TECHNICIAN POINT OF CARE TEST ENTER/EDIT O RDERABLES Final Result * (ABNORMAL) Urinalysis, Complete, with Reflex to Culture (11/19/2024 6:40 PM EDT) Color Urine Yellow [facility] Appearance Urine Clear [facility] PH 6.5 5.0 - 9.0 [facility] Glucose Urine UA Negative Negative mg/dL [facility] Urine Blood Negative Negative [facility] Specific [place] - Urine 1.015 1.005 - 1.025 [facility] Urine Protein Negative Neg-Trace mg/dL [facility] Urine Ketones Negative Negative mg/dL [facility] Nitrite Urine Negative Negative [facility] Leukocyte Esterase Urine Trace(A) Negative [facility] RBC Urine 0-2 0 - 2 /HPF [facility] Urine WBC 0-5 0 - 5 /HPF [facility] Urine Squamous Epithelial Cell 0-2 0 - 2 /HPF [facility] Urine Bacteria None Seen None Seen [facility] Hyaline Casts, Urine 0-2 0 - 2 /LPF [facility] 11/19/2024 6:40 PM EDT 11/20/2024 1:41 PM EDT Narrative [facility] - 11/20/2024 2:05 PM EDT Urine, Clean Catch [facility] SAFETY RELIEF VALVE TECHNICIAN LAB URINE ORDERABLES Final Resu lt [facility] [address] [place] [address] [phone] * Culture, Urine, Routine (11/14/2024 4:20 PM EDT) Only the most recent of2 resultswithin the time period is included. Urine Urine specimen obtained by clean catch procedure / Unknown 11/14/2024 4:20 PM EDT 11/14/2024 7:27 PM EDT Comment:UACC Narrative [facility] - 11/19/2024 7:40 AM EDT Gardnerella vaginalis Quant 50,000 to 100,000 cfu/mL Susc N/A Susceptibility not routinely performed on this isolate. Specimen Source: Urine clean catch us Katheryn [facility] MICROBIOLOGY - GENERA L ORDERABLES Final Result [facility] [address] [place] [phone] * BI Mammogram Screening Tomosynthesis Bilateral (09/21/2023 3:00 PM EDT) Anatomical Region Laterality Modality Breast Bilateral Mammography 09/21/2023 3:00 PM EDT Narrative 10/18/2023 7:41 AM EDT [address] [place] [address] Mammography Report Signed Patient: Olga Lassiter MR#: [id number] : 1975 Acct:[id number] Age/Sex: 48 / F ADM Date: 09/21/23 Loc: HO.MAMMO Attending Dr: Meredith Rm MD Ordering Physician: Meredith Rm MD Results: 1Ne gative Date of Service: 09/21/23 Follow Up: 1 Year From [facility] ina Mammogram Procedure(s): MM tomosynthesis screening BI Accession Number(s): [id number] cc: Meredith Rm MD EXAMINATION: MM SCREENING [...] 10/18/23 0738 DD/ 1500 TD/TT: 09/21/23 1540 Slicing Machine Operator: Procedure Note Donotuseinterpreter, Image - [facility]20[facility] [address] [place], [place] [address] Mammography Report Signed Patient: Petey Lassiter#: [id number] : 1975Acct:[id number] Age/Sex: 48 / FADM Date: 09/21/23 Loc: HO.MAMMO Attending Dr: Meredith Rm MD Ordering Physician: Meredith Rm MDResults: 1Ne gative Date of Service: 09/21/23Follow Up: 1 Year From Orig inal Mammogram Procedure(s): MM tomosynthesis screening BI Accession Number(s): [id number] cc: Meredith Rm MD EXAMINATION: MM SCREENING [...] 10/18/23 0738 DD/ 1500 TD/TT: 09/21/23 1540 Slicing Machine Operator: Meredith Rm MD IM BI PROCEDURES Final Resul t * HIV AB/AG (05/14/2021 8:16 AM EDT) Pathologist [facility] HIV AB/AG Nonreactive Nonreactive [facility] Comment: HIV-1 p24 Ag and/or [...] of detection of this assay. The Cline Core Measures Abstractor HIV Ag/Ab Combo assay result and supplemental assay results should be interpreted in conjunction with the patient's clinical presentation, history and other laboratory results. If the results are inconsistent with clinical evidence, additional testing is suggested to confirm the result. 05/14/2021 8:16 AM EDT us Historical Provider HISTORICAL/NON ORDERABLE LABS Final Result [facility], [facility] [place] [address], * HEPATITIS C AB W/REFL TO HCV [...] a test for HCV RNA (test code 36193) is suggested. For additional information please refer to http://education.Meraki/faq/XKK43n2 (This link is being provided for informational/ educational purposes only.) 02/14/2020 2:48 PM EST us Meredith Rm MD HISTORICAL/NON ORDERABLE LABS Final Result [facility] [address] [place] [phone], * THINPREP PAP (01/29/2020 2:43 PM EST) [...] along with historic and current clinical information. Cemetery Vault Installer : SEE COMMENT [facility] Comment: RK, CT(ASCP) CT screening location: [place] [address] Interpretation/R esult: Negative for intraepithelial lesion or [...] not provided 01/29/2020 2:43 PM EST Katheryn Alicja [facility] [facility] PATHOLOGY ORDERABLES Final Result Performing Organization Address [facility] de Phone Number [facility] [address] * HPV mRNA E6/E7 (01/29/2020 2:43 PM EST) HPV nRNA E6/E7 Not Detected Not Detected [facility] Comment: This test was performed using the APTIMA HPV Assay ([employer] This assay detects E6/E7 viral messenger RNA (mRNA) from 14 high-risk HPV types (16,18,31,33,35,39,45,51,52,56,58,59,66,68). The analytical performance characteristics of this assay have been determined by [employer]. The modifications have not been cleared or approved by the FDA. This assay has been validated pursuant to the CLIA regulations and is used for clinical purposes. 01/29/2020 2:43 PM EST Katheryn Helm [employer] [facility] [facility] [employer] [facility] BLOOD ORDERABLES Velia l Result Performing Organization Address [facility] de Phone Number [facility] [address] from Last 3 Months or Most Recently Relevant to Health Maintenance Insurance [facility] 2 [place] [employer] Care Teams Ripsaw Matcher Relationship Specialty Start Date End Date Meredith Rm MD [address] [place] [address] PCP - General Family Medicine 02/14/18
--- OUTSIDE RECORDS SUMMARY | 2024-11-20 16:49 | XMS_ITS | Encounter Summary ---
Author Organization [employer] Address 75 [facility] 7t [place] [address] Care Team Providers Care Light Cleaner Name Role Phone Meredith Rm MD Primary Care Provider [phone] Encounter Details Date Type Department Care Team (Late st Contact Info) Description 11/19/2024 Orders Only [facility] [address] [place], [place] [phone] Katheryn Helm CNM [address] [place], [place] [phone] Social History Tobacco Use Types Packs/Day Years [...] Upcoming Encounters Date Type Department Care Team ([facility] st Contact Info) Description 12/05/2024 3:00 PM EDT Clinical Support [facility] [address] [place] [address] 01/17/2025 3:15 PM EST Office Visit [facility] [address] [place] [address] Meredith Rm MD [address] [place] [address] documented as of this encounter Procedures Procedure Name Priority Date/Time Associated Diagnosis Comments URINALYSIS, COMPLETE, WITH REFLEX TO CULTURE Routine 11/19/2024 6:40 PM EDT documented in this encounter Results * (ABNORMAL) Urinalysis, Complete, with Reflex to Culture (11/19/2024 6:40 PM EDT) Color Urine Yellow [facility] Appearance Urine Clear [facility] PH 6.5 5.0 - 9.0 [facility] Glucose Urine UA Negative Negative mg/dL [facility] Urine Blood Negative Negative [facility] Specific [place] - Urine 1.015 1.005 - 1.025 [facility] Urine Protein Negative Neg-Trace mg/dL [facility] Urine Ketones Negative Negative mg/dL [facility] Nitrite Urine Negative Negative [facility] Leukocyte Esterase Urine Trace(A) Negative [facility] RBC Urine 0-2 0 - 2 /HPF [facility] Urine WBC 0-5 0 - 5 /HPF [facility] Urine Squamous Epithelial Cell 0-2 0 - 2 /HPF [facility] Urine Bacteria None Seen None Seen [facility] Hyaline Casts, Urine 0-2 0 - 2 /LPF [facility] 11/19/2024 6:40 PM EDT 11/20/2024 1:41 PM EDT Narrative [facility] - 11/20/2024 2:05 PM EDT Urine, Clean Catch us Shaniquafern Kwanm [facility] [employer] LAB URINE ORDERABLES Final Resu lt [facility] [address] [place] [address] [phone] documented in this encounter Visit Diagnoses Not on filedocumented in this encounter Additional Health Concerns Assessment Noted Time PHQ-9 Depression Total Score: 2 11/15/19 25 4:04 PM EDT documented as of this encounter Care Teams Light Cleaner Relationship Specialty Start Date End Date Meredith Rm MD [address] [place] [phone] PCP - General Family Medicine 02/14/18 documented as of this encounter
--- OUTSIDE RECORDS SUMMARY | 2024-11-20 16:49 | XMS_ITS | Encounter Summary ---
Author Organization [employer] [facility] Address [address] [place] [address] [address] [place] [address] Care Team Providers Care Assistant Merchandiser Name Role Phone Meredith Rm MD Primary Care Provider [phone] Encounter Details Date Type Department Care Team (Latest Contact Info) Description 01/12/2022 Abstract [facility] Dental, Provider, DDS Social History [...] Description 12/05/2024 3:00 PM EDT Clinical Support [facility] [address] [place] [address] 01/17/2025 3:15 PM EST Office Visit [facility] [address] [place] [address] Meredith Rm MD [address] [place] [address] documented as of this encounter Visit Diagnoses Not on filedocumented in this encounter Care Teams Assistant Merchandiser Relationship Specialty Start Date End Date Meredith Rm MD [address] [place] [address] PCP - General Family Medicine 02/14/18 documented as of this encounter
--- OUTSIDE RECORDS SUMMARY | 2024-11-20 16:49 | XMS_ITS | Encounter Summary ---
Author Organization [employer] Address 75 [facility] 7t [place] [address] Care Team Providers Care Medical Diagnostic Radiographer Name Role Phone Meredith Rm MD Primary Care Provider Reason for Visit * Reason Onset Date Comments change provider 11/17/2024 Encounter Details Date Type Department Care Team ([facility] Contact Info) Description 11/17/2024 Telephone [facility] [address] [place] [address] Meredith Rm MD [address] [place] [address] change provider Social History Tobacco Use Types Packs/Day Years [...] encounter Miscellaneous Notes * Telephone Encounter - Gilberto Garza - 11/17/2024 12:44 PM EDT Pt would like to have a transfer patient appointment. documented in this encounter Plan of Treatment Upcoming Encounters Date Type Department Care Team (Late st Contact Info) Description 12/05/2024 3:00 PM EDT Clinical Support [facility] [address] [place] [address] 01/17/2025 3:15 PM EST Office Visit [facility] [address] [place] [address] Meredith Rm MD [address] [place] [address] documented as of this encounter Visit Diagnoses Not on filedocumented in this encounter Additional Health Concerns Assessment Noted Time PHQ-9 Depression Total Score: 2 11/15/19 25 4:04 PM EDT documented as of this encounter Care Teams Medical Diagnostic Radiographer Relationship Specialty Start Date End Date Meredith Rm MD [address] [place] [address] PCP - General Family Medicine 02/14/18 documented as of this encounter
--- OUTSIDE RECORDS SUMMARY | 2024-11-20 16:49 | XMS_ITS | Encounter Summary ---
Author Organization [employer] Address 75 [facility] 7t [place] [address] Care Team Providers Care Headlight Assembler Name Role Phone Meredith Rm MD Primary Care Provider [phone] Reason for Visit * Reason Onset Date Comments Results 09/29/2023 Encounter Details Date Type Department Care Team ([facility] Contact Info) Description 09/29/2023 Telephone [facility] MED[facility] [address] [place] [address] Meredith Rm MD [address] [place], [place] [phone] Results Social History Tobacco Use Types Packs/Day [...] from pt, requesting to speak with a financial project manager, scenario writer inform from point of View EULALIO Crandall and Sri will be giving her a call unsure when, Pt advised if issue is not resolved within today, she will be calling again tomorrow all day. * Telephone Encounter - Rolf Cummins - 09/29/2023 12:48 PM EDT Tc from pt returning call and demanding to speak to director of [facility], states they will be seen at a different facility for labs and will come in with results. Pt also stated they will be filing a law suit for the entire [facility] management. Pt was very upset. Middle School Teacher attempted to get a hold of rehabilitation manager unable to reach. Please see previous message. Pt stated if no call in 20 min they will be coming in p erson. * Telephone Encounter - Vineet Bentley - 09/29/2023 12:02 PM EDT TC from pt irate and using foul language requesting a call from Dr Rm , Nurse Tip Stitcher Julissa ,Disability Attorney Modesta. Pt is threatening call every 10-20 min until gets a response regarding her labs . Also threatening with a drain technician and pulling 17yrld son from seeing Dr Rm . States will be makingcalls to drain technician and who ever she needs to, to file a report against [facility] . Pt disconnected call before I could get a word in . * Telephone Encounter - Wing Flaquita RN - 09/29/2023 11:22 AM EDT Tc to pt who was very upset that RN was calling her and was asking for a nurse financial project manager. Advised pt that PCP was seeing [...] Pt again requested to speak to a financial project manager to file a complaint. Attempted to advise ptto go to ED for reported back pain but was interrupted as pt stated that she would call [place] to file a complaint against everyone she called this morning. Called advised that she could do so if she wanted and that the caller was doing what they could to help as PCP was seeing pts at the moment. Pt then accused the caller of also responsible in her claims of care mismanagement at [facility] as she claimed the caller refused to give the name of the nurse financial project manager. Caller had already told the pt that the nurse financial project manager was busy and had been told [...] Description 12/05/2024 3:00 PM EDT Clinical Support [facility] [address] [place] [address] 01/17/2025 3:15 PM EST Office Visit [facility] [address] [place] [address] Meredith Rm MD [address] [place] [address] documented as of this encounter Visit Diagnoses Not on filedocumented in this encounter Care Teams Headlight Assembler Relationship Specialty Start Date End Date Meredith Rm MD [address] [place] [address] PCP - General Family Medicine 02/14/18 documented as of this encounter
--- OUTSIDE RECORDS SUMMARY | 2024-11-20 16:49 | XMS_ITS | Encounter Summary ---
Author Organization [employer] [facility] Address 75 [facility] 7t [place] [address] Care Team Providers Care Construction Site Crossing Guard Name Role Phone Meredith Rm MD Primary Care Provider [phone] Encounter Details Date Type Department Care Team (Late st Contact Info) Description 11/19/2024 Results Follow-Up [facility] MED[facility] [address] [place] [address] Katheryn Helm CNM [address] [place], [place] [phone] Culture, Urine, Routine, POCT urinalysis dipstick manually resulted Social History Tobacco Use Types Packs/Day Years [...] * Telephone Encounter - Mario Berg - 11/19/2024 4:08 PM EDT Tc from pt requesting clarification regarding this encounter, and what she should do with the antibiotics. Contact pt at [phone] documented in this encounter Plan of Treatment Upcoming Encounters Date Type Department Care Team (Late st Contact Info) Description 12/05/2024 3:00 PM EDT Clinical Support [facility] [address] [place] [address] 01/17/2025 3:15 PM EST Office Visit [facility] [address] [place] [address] Meredith Rm MD [address] [place] [address] documented as of this encounter Visit Diagnoses Not on filedocumented in this encounter Additional Health Concerns Assessment Noted Time PHQ-9 Depression Total Score: 2 11/15/19 25 4:04 PM EDT documented as of this encounter Care Teams Construction Site Crossing Guard Relationship Specialty Start Date End Date Meredith Rm MD [address] [place] [address] PCP - General Family Medicine 02/14/18 documented as of this encounter
--- OUTSIDE RECORDS SUMMARY | 2024-11-20 16:49 | XMS_ITS | Encounter Summary ---
Author Organization [employer] [facility] Address [address] [place] [address] 7 [place] [address] Care Team Providers Care Accountant Cost Name Role Phone Meredith Rm MD Primary Care Provider [phone] Reason for Visit * Reason Comments Med Change Request Encounter Details Date Type Department Care Team ([facility] Contact Info) Description 06/24/2022 Refill [facility] [address] [place] [address] Meredith Rm MD [address] [place] [address] Social History Tobacco Use Types Packs/Day Years [...] Upcoming Encounters Date Type Department Care Team ([facility] Contact Info) Description 12/05/2024 3:00 PM EDT Clinical Support [facility] [address] [place] [address] 01/17/2025 3:15 PM EST Office Visit [facility] [address] [place] [address] Meredith Rm MD [address] [place] [address] documented as of this encounter Visit Diagnoses Not on filedocumented in this encounter Care Teams Accountant Cost Relationship Specialty Start Date End Date Meredith Rm MD [address] [place] [address] PCP - General Family Medicine 02/14/18 documented as of this encounter
--- OUTSIDE RECORDS SUMMARY | 2024-11-20 16:49 | XMS_ITS | Encounter Summary ---
Author Organization [employer] Address [address] [facility] 7t [place] [address] Care Team Providers Care Director Nicu Name Role Phone Meredith Rm MD Primary Care Provider [phone] Reason for Visit * Reason Onset Date Comments Call Back Request 11/09/2024 Encounter Details Date Type Department Care Team ([facility] Contact Info) Description 11/09/[address] [facility] MED & PEDS [address] [place], [place] [phone] Meredith Rm MD 505 [place] [address] Call Back Request Social History Tobacco Use [...] does not agree with. Contact pt at [phone] documented in this encounter Plan of Treatment Upcoming Encounters Date Type Department Care Team ([facility] st Contact Info) Description 12/05/2024 3:00 PM EDT Clinical Support [facility] MED & PEDS [address] [place] [address] 01/17/2025 3:15 PM EST Office Visit [facility] MED & PEDS [address] [place] [address] Meredith Rm MD 505 [place] [address] documented as of this encounter Visit Diagnoses Not on filedocumented in this encounter Care Teams Director Nicu Relationship Specialty Start Date End Date Meredith Rm MD [address] [place] [address] PCP - General Family Medicine 02/14/18 documented as of this encounter
--- OUTSIDE RECORDS SUMMARY | 2024-11-20 16:49 | XMS_ITS | Encounter Summary ---
Author Organization [employer] [facility] Address [address] [place] [address] 7 [place] [address] Care Team Providers Care Extra Gang Supervisor Name Role Phone Meredith Rm MD Primary Care Provider [phone] Encounter Details Date Type Department Care Team (Latest Contact Info) Description 08/12/2020 Abstract [facility] CONVERSIONS Dental, Provider, DDS Social History [...] Description 12/05/2024 3:00 PM EDT Clinical Support [facility] MED & PEDS [address] [place] [address] 01/17/2025 3:15 PM EST Office Visit [facility] MED & PEDS [address] [place] [address] Meredith Rm MD 505 [place] [address] documented as of this encounter Visit Diagnoses Not on filedocumented in this encounter Care Teams Extra Gang Supervisor Relationship Specialty Start Date End Date Meredith Rm MD 505 [place] [address] PCP - General Family Medicine 02/14/18 documented as of this encounter
--- OUTSIDE RECORDS SUMMARY | 2024-11-20 16:49 | XMS_ITS | Encounter Summary ---
Author Organization [employer] Address 75 [facility] 7t [place] [address] Care Team Providers Care Technical Rep Name Role Phone Meredith Rm MD Primary Care Provider [phone] Encounter Details Date Type Department Care Team (Late st Contact Info) Description 11/15/2024 Orders Only [facility] MEDICINE [address] [place], [place] [phone] Katheryn Helm CNM [address] [place], [place] [phone] Social History Tobacco Use Types Packs/Day Years [...] 12/05/2024 3:00 PM EDT Clinical Support [facility] MED & PEDS 505 [place] [address] 01/17/2025 3:15 PM EST Office Visit [facility] MED & PEDS [address] [place] [address] Meredith Rm MD 505 [place] [address] documented as of this encounter Visit Diagnoses Not on filedocumented in this encounter Additional Health Concerns Assessment Noted Time PHQ-9 Depression Total Score: 2 11/15/19 25 4:04 PM EDT documented as of this encounter Care Teams Technical Rep Relationship Specialty Start Date End Date Meredith Rm MD 505 [place] [address] PCP - General Family Medicine 02/14/18 documented as of this encounter
--- OUTSIDE RECORDS SUMMARY | 2024-11-20 16:49 | XMS_ITS | Encounter Summary ---
Author Organization [employer] Address [address] [facility] 7t [place] [address] Care Team Providers Care Heel Stainer Name Role Phone Meredith mR MD Primary Care Provider [phone] Reason for Visit * Reason Onset Date Comments Med Refill 04/16/2024 Encounter Details Date Type Department Care Team ([facility] Contact Info) Description 04/16/2024 Refill [facility] CHC MED & PEDS [address] [place], [place] [phone] Meredith Rm MD 505 [place] [address] Social History Tobacco Use Types Packs/Day Years [...] Upcoming Encounters Date Type Department Care Team ([facility] st Contact Info) Description 12/05/2024 3:00 PM EDT Clinical Support [facility] MED & PEDS [address] [place] [address] 01/17/2025 3:15 PM EST Office Visit [facility] MED & PEDS [address] [place] [address] Meredith Rm MD [address] [place] [address] documented as of this encounter Visit Diagnoses Not on filedocumented in this encounter Care Teams Heel Stainer Relationship Specialty Start Date End Date Meredith Rm MD [address] [place] [address] PCP - General Family Medicine 02/14/18 documented as of this encounter
--- OUTSIDE RECORDS SUMMARY | 2024-11-20 16:49 | XMS_ITS | Encounter Summary ---
Author Organization [employer] [facility] Address [address] [facility] 7t [place] [address] Care Team Providers Care Day Haul Or Farm Charter Bus Driver Name Role Phone Meredith Rm MD Primary Care Provider [phone] Encounter Details Date Type Department Care Team ([facility] Contact Info) Description 01/29/2022 Abstract [facility]ULT D[facility]AL 505 [place] [address] Marco Fiore, DDS [address] [place], [place] [phone] Social History Tobacco Use Types Packs/Day Years [...] Upcoming Encounters Date Type Department Care Team ([facility] Contact Info) Description 12/05/2024 3:00 PM EDT Clinical Support [facility] MED & PEDS 505 [place], [place] [phone] 01/17/2025 3:15 PM EST Office Visit [facility] MED & PEDS 505 [place] [address] Meredith Rm MD 505 [place] [address] documented as of this encounter Visit Diagnoses Not on filedocumented in this encounter Care Teams Day Ha[employer] Farm Charter Bus Driver Relationship Specialty Start Date End Date Meredith Rm MD [address] [place] [address] PCP - General Family Medicine 02/14/18 documented as of this encounter
--- OUTSIDE RECORDS SUMMARY | 2024-11-20 16:49 | XMS_ITS | Encounter Summary ---
Author Organization [employer] [facility] Address [address] [place] [address] 7t [place] [address] Care Team Providers Care Structures Engineer Name Role Phone Meredith Rm MD Primary Care Provider [phone] Encounter Details Date Type Department Care Team ([facility] Contact Info) Description 01/25/2022 Abstract [facility] ADULT DENTAL [address] [place], [place] [phone] Dental, Provider, DDS Social History Tobacco Use [...] In the last 10 days, have zelda aomr been in contact with someone who was confirmed or suspected to have Coronavirus/COVID-19? No / Unsure 01/28/2022 3:03 PM EST documented as of this encounter Plan of Treatment Upcoming Encounters Date Type Department Care Team ([facility] Contact Info) Description 12/05/2024 3:00 PM EDT Clinical Support [facility] MED & PEDS [address] [place] [address] 01/17/2025 3:15 PM EST Office Visit [facility] MED & PEDS [address] [place], [place] [phone] Meredith Rm MD 505 [place] [address] Scheduled Orders Name Type Priority Associated Diagnoses [...] on filedocumented in this encounter Care Teams Structures Engineer Relationship Specialty Start Date End Date Meredith Rm MD [address] [place] [address] PCP - General Family Medicine 02/14/18 documented as of this encounter
--- OUTSIDE RECORDS SUMMARY | 2024-11-20 16:49 | XMS_ITS | Encounter Summary ---
Author Organization [employer] Address 75 [facility] 7t [place] [address] Care Team Providers Care Herbarium Worker Name Role Phone Meredith Rm MD Primary Care Provider [phone] Reason for Visit * Reason Onset Date Comments triage 06/22/2022 Encounter Details Date Type Department Care Team ([facility] st Contact Info) Description 06/22/2022 Telephone C [facility] MED & PEDS [address] [place], [place] [phone] Meredith Rm MD 505 [place], [place] [phone] triage Social History Tobacco Use Types Packs/Day [...] 3:00 PM EDT Clinical Support [facility] MED & PEDS [address] [place] [address] 01/17/2025 3:15 PM EST Office Visit [facility] MED & PEDS 505 [place] [address] Meredith Rm MD 505 [place] [address] documented as of this encounter Visit Diagnoses Not on filedocumented in this encounter Care Teams Herbarium Worker Relationship Specialty Start Date End Date Meredith Rm MD 505 [place] [address] PCP - General Family Medicine 02/14/18 documented as of this encounter
== END 2024-11-20 13:39 | disposition home or self-care (01) ==
LOC: HO.LNP 13:38
PROVIDERS: Visit Provider Nurse Practitioner
DX: R10.10 Upper abdominal pain, unspecified (principal)
CPT/HCPCS: 81001; 81003

== ENCOUNTER 2024-11-20 15:05 | Outpatient (REF) | payer OTHER, SELFPAY ==
[2024-11-20 17:54] LABS: MANUAL DIFF FLAG NO
[2024-11-20 18:15] LABS: Appearance Urine Clear; Glucose Urine UA Negative (Negative); PH 7.5 (5.0-9.0); Specific Gravity - Urine 1.010 (1.005-1.025)
[2024-11-20 18:25] LABS: Hematocrit 35.6 % (37.0-47.0); Hemoglobin 12.5 g/dl (12.0-16.0); Imm Gran Abs Auto 0.02 X10*3/uL (0.00-0.03); Imm Gran Pct Auto 0.3 % (0.0-0.4); Lymphocytes Absolute Auto 1.8 X10*3/uL (1.2-4.9); Mean Corpuscular HGB Conc 35.1 g/dl (31.0-35.0); Mean Corpuscular Hemoglobin 28.7 pg (27.0-33.0); Mean Corpuscular Volume 81.8 fL (80.0-98.0); NRBC Abs Auto 0.000 X10*3/uL (0.0-0.012); NRBC Pct Auto 0.0 /100WBC (0.0-0.2); Platelet Count 268 X10*3/uL (160-400); Red Blood Count 4.35 X10*6/uL (4.20-5.50); White Blood Count 8.0 X10*3/uL (4.8-10.8)
[2024-11-20 18:28] LABS: Alanine Aminotransferase 30 U/L (0-31); Albumin Level 4.5 g/dL (3.5-5.0); Alkaline Phosphatase 85 U/L (39-117); Anion Gap 14 (12-20); Aspartate Amino Transferase 27 U/L (5-31); Blood Urea Nitrogen 14 mg/dL (9-16); Calcium 9.5 mg/dL (8.4-10.2); Carbon Dioxide 27 mmol/L (22-29); Chloride 105 mmol/L (96-108); Estimated Glomerular Filt Rate > 60; Potassium 3.3 mmol/L (3.3-5.1); Sodium 143 mmol/L (135-145); Total Protein 7.4 g/dL (6.5-8.0)
== END 2024-11-20 15:06 | disposition home or self-care (01) ==
LOC: HO.CHCLDS 15:05
PROVIDERS: Visit Provider Nurse Practitioner
DX: N02.9 Recurrent and persistent hematuria with unspecified morphologic changes (principal); R10.10 Upper abdominal pain, unspecified
CPT/HCPCS: 36415; 80053; 81003; 85025

== ENCOUNTER 2024-12-26 15:21 | Outpatient (REF) | payer OTHER, SELFPAY ==
--- OUTSIDE RECORDS SUMMARY | 2024-12-26 18:35 | XMS_ITS | Encounter Summary ---
Author Organization [employer] [facility] Address [address] [facility] 7t [place] [address] Care Team Providers Care Quality Assurance Lab Technician Name Role Phone Meredith Rm MD Primary Care Provider Encounter Details Date Type Department Care Team ([facility] Contact Info) Description 01/25/[address] [facility] ADULT DENTAL [address] [place] [address] Dental, Provider, DDS Social History Tobacco Use [...] Upcoming Encounters Date Type Department Care Team ([facility] Contact Info) Description 01/17/2025 3:15 PM EST Office Visit [facility] MED & PEDS 505 [place] [address] Meredith Rm MD 505 [place] [address] Scheduled Orders Name Type Priority Associated Diagnoses [...] filedocumented in this encounter Care Teams Quality Assurance Lab Technician Relationship Specialty Start Date End Date Meredith Rm MD [address] [place] [address] PCP - General Family Medicine 02/14/18 documented as of this encounter
--- OUTSIDE RECORDS SUMMARY | 2024-12-26 18:35 | XMS_ITS | Encounter Summary ---
Author Organization [employer] Address [address] [facility] 7t [place] [address] Care Team Providers Care Rags Laborer Name Role Phone Meredith Rm MD Primary Care Provider [phone] Reason for Visit * Reason Comments Med Refill Encounter Details Date Type Department Care Team ([facility] Contact Info) Description 12/13/2024 Refill [facility] CHC MED & PEDS [address] [place], [place] [phone] Meredith Rm MD 505 [place] [address] Social History Tobacco Use Types Packs/Day Years [...] t he electric, gas, oil or water [employer] threatened to shut off services in your [...] Upcoming Encounters Date Type Department Care Team ([facility] st Contact Info) Description 01/17/2025 3:15 PM EST Office Visit [facility] MED & PEDS [address] [place] [address] Meredith Rm MD 505 [place] [address] documented as of this encounter Visit Diagnoses Not on filedocumented in this encounter Additional Health Concerns Assessment Noted Time PHQ-9 Depression Total Score: 2 11/15/19 25 4:04 PM EDT documented as of this encounter Care Teams Rags Laborer Relationship Specialty Start Date End Date Meredith Rm MD 505 [place] [address] PCP - General Family Medicine 02/14/18 documented as of this encounter
--- OUTSIDE RECORDS SUMMARY | 2024-12-26 18:35 | XMS_ITS | Encounter Summary ---
Author Organization [employer] Address [address] [facility] 7t [place] [address] Care Team Providers Care Cafeteria Helper Name Role Phone Meredith Rm MD Primary Care Provider [phone] Reason for Visit * Reason Onset Date Comments Results 09/29/2023 Encounter Details Date Type Department Care Team ([facility] Contact Info) Description 09/29/2023 Telephone [facility] MEDICINE [address] [place] [address] Meredith Rm MD [address] [place], [place] [phone] Results Social History Tobacco Use Types Packs/Day [...] from pt, requesting to speak with a software development project manager, check writer inform from point of View EULALIO Crandall and Sri will be giving her a call unsure when, Pt advised if issue is not resolved within today, she will be calling again tomorrow all day. * Telephone Encounter - Rolf Cummins - 09/29/2023 12:48 PM EDT Tc from pt returning call and demanding to speak to director of [facility], states they will be seen at a different facility for labs and will come in with results. Pt also stated they will be filing a law suit for the entire [facility] management. Pt was very upset. Logistics Director attempted to get a hold of manager drug unable to reach. Please see previous message. Pt stated if no call in 20 min they will be coming in p erson. * Telephone Encounter - Vineet Bentley - 09/29/2023 12:02 PM EDT TC from pt irate and using foul language requesting a call from Dr Rm , Nurse Semiconductor Wafers Marker Julissa ,Electric Motor Repairman Modesta. Pt is threatening call every 10-20 min until gets a response regarding her labs . Also threatening with a industrial renderer and pulling 15yrld son from seeing Dr Rm . States will be makingcalls to industrial renderer and who ever she needs to, to file a report against [facility] . Pt disconnected call before I could get a word in . * Telephone Encounter - Wing Flaquita RN - 09/29/2023 11:22 AM EDT Tc to pt who was very upset that RN was calling her and was asking for a nurse software development project manager. Advised pt that PCP was [...] Pt again requested to speak to a software development project manager to file a complaint. Attempted to advise ptto go to ED for reported back pain but was interrupted as pt stated that she would call [employer] to file a complaint against everyone she called this morning. Called advised that she could do so if she wanted and that the caller was doing what they could to help as PCP was seeing pts at the moment. Pt then accused the caller of also responsible in her claims of care mismanagement at [facility] as she claimed the caller refused to give the name of the nurse software development project manager. Caller had already told the pt that the nurse software development project manager was busy and had been [...] Care Team (Late st Contact Info) Description 01/17/2025 3:15 PM EST Office Visit [facility] CHC MED & PEDS [address] [place] [address] Meredith Rm MD [address] [place] [address] documented as of this encounter Visit Diagnoses Not on filedocumented in this encounter Care Teams Cafeteria Helper Relationship Specialty Start Date End Date Meredith Rm MD [address] [place] [address] PCP - General Family Medicine 02/14/18 documented as of this encounter
--- OUTSIDE RECORDS SUMMARY | 2024-12-26 18:35 | XMS_ITS | Encounter Summary ---
Author Organization [employer] Address [address] [facility] 7t [place] [address] Care Team Providers Care Carpenter Assistant Installer Name Role Phone Meredith Rm MD Primary Care Provider [phone] Reason for Visit * Reason Onset Date Comments triage 06/22/2022 Encounter Details Date Type Department Care Team ([facility] st Contact Info) Description 06/22/2022 Telephone C [facility] MED & PEDS 505 [place], [place] [phone] Meredith Rm MD [address] [place], [place] [phone] triage Social History Tobacco Use Types Packs/Day [...] Description 01/17/2025 3:15 PM EST Office Visit [facility] CHC MED & PEDS 505 [place] [address] Meredith Rm MD [address] [place] [address] documented as of this encounter Visit Diagnoses Not on filedocumented in this encounter Care Teams Carpenter Assistant Installer Relationship Specialty Start Date End Date Meredith Rm MD [address] [place] [address] PCP - General Family Medicine 02/14/18 documented as of this encounter
--- OUTSIDE RECORDS SUMMARY | 2024-12-26 18:35 | XMS_ITS | Encounter Summary ---
Author Organization [employer] [facility] Address [address] [facility] 7t [place] [address] Care Team Providers Care Prepress Manager Name Role Phone Meredith Rm MD Primary Care Provider [phone] Encounter Details Date Type Department Care Team (Latest Contact Info) Description 08/12/2020 Abstract [facility] CONVERSIONS Dental, Provider, DDS Social History [...] Description 01/17/2025 3:15 PM EST Office Visit [facility] CHC MED & PEDS 505 [place] [address] Meredith Rm MD 505 [place] [address] documented as of this encounter Visit Diagnoses Not on filedocumented in this encounter Care Teams Prepress Manager Relationship Specialty Start Date End Date Meredith Rm MD [address] [place] [address] PCP - General Family Medicine 02/14/18 documented as of this encounter
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
--- OUTSIDE RECORDS SUMMARY | 2024-12-26 18:35 | XMS_ITS | Encounter Summary ---
Author Organization [employer] [facility] Address [address] [place] [address] 7 [place] [address] Care Team Providers Care Transport Conductor Name Role Phone Meredith Rm MD Primary Care Provider [phone] Reason for Visit * Reason Comments Med Change Request Encounter Details Date Type Department Care Team ([facility] Contact Info) Description 06/24/2022 Refill [facility] MED & PEDS [address] [place] [address] Meredith Rm MD [address] [place] [address] Social History Tobacco Use Types Packs/Day Years [...] Upcoming Encounters Date Type Department Care Team ([facility] Contact Info) Description 01/17/2025 3:15 PM EST Office Visit [facility] CHC MED & PEDS [address] [place] [address] Meredith Rm MD [address] [place] [address] documented as of this encounter Visit Diagnoses Not on filedocumented in this encounter Care Teams Transport Conductor Relationship Specialty Start Date End Date Meredith Rm MD [address] [place] [address] PCP - General Family Medicine 02/14/18 documented as of this encounter
--- OUTSIDE RECORDS SUMMARY | 2024-12-26 18:35 | XMS_ITS | Encounter Summary ---
Author Organization [employer] [facility] Address [address] [facility] 7t [place] [address] Care Team Providers Care Aircrewman Name Role Phone Meredith Rm MD Primary Care Provider Encounter Details Date Type Department Care Team (Latest Contact Info) Description 12/25/2020 Abstract [facility] CONVERSIONS Dental, Provider, DDS Social History [...] Description 01/17/2025 3:15 PM EST Office Visit [facility] CHC MED & PEDS [address] [place] [address] Meredith Rm MD 505 [place] [address] documented as of this encounter Visit Diagnoses Not on filedocumented in this encounter Care Teams Aircrewman Relationship Specialty Start Date End Date Meredith Rm MD [address] [place] [address] PCP - General Family Medicine 02/14/18 documented as of this encounter
--- OUTSIDE RECORDS SUMMARY | 2024-12-26 18:35 | XMS_ITS | Encounter Summary ---
Author Organization [employer] [facility] Address [address] [facility] 7t [place] [address] Care Team Providers Care Forestry Contractor Name Role Phone Meredith Rm MD Primary Care Provider [phone] Encounter Details Date Type Department Care Team (Late Contact Info) Description 01/29/2022 Abstract [facility] ADULT DENTAL 505 [place], [place] [address] Marco Fiore DDS 230 [place] [address] Social History Tobacco Use Types Packs/Day Years [...] Description 01/17/2025 3:15 PM EST Office Visit [facility] MED & PEDS 505 [place], [place] [phone] Meredith Rm MD 505 [place], [place] [phone] documented as of this encounter Visit Diagnoses Not on filedocumented in this encounter Care Teams Forestry Contractor Relationship Specialty Start Date End Date Meredith Rm MD [address] [place] [address] PCP - General Family Medicine 02/14/18 documented as of this encounter
--- OUTSIDE RECORDS SUMMARY | 2024-12-26 18:35 | XMS_ITS | Encounter Summary ---
Author Organization [email or web address] [facility] Address [address] [facility] 7t [place] [address] Care Team Providers Care Cnc Machine Operator Name Role Phone Meredith Rm MD Primary Care Provider [phone] Encounter Details Date Type Department Care Team (Latest Contact Info) Description 01/12/2022 Abstract [facility] CONVERSIONS Dental, Provider, DDS Social History Tobacco [...] Description 01/17/2025 3:15 PM EST Office Visit [facility] CHC MED & PEDS [address] [place] [address] Meredith Rm MD 505 [place] [address] documented as of this encounter Visit Diagnoses Not on filedocumented in this encounter Care Teams Cnc Machine Operator Relationship Specialty Start Date End Date Meredith Rm MD 505 [place] [address] PCP - General Family Medicine 02/14/18 documented as of this encounter
--- OUTSIDE RECORDS SUMMARY | 2024-12-26 18:35 | XMS_ITS | Encounter Summary ---
Author Organization [employer] Address [address] [facility] 7t [place] [address] Care Team Providers Care University Teacher Name Role Phone Meredith Rm MD Primary Care Provider [phone] Reason for Visit * Reason Onset Date Comments Call Back Request 11/09/2024 Encounter Details Date Type Department Care Team ([facility] Contact Info) Description 11/09/2024 Telephone [facility] MED & PEDS [address] [place], [place] [phone] Meredith Rm MD [address] [place] [address] Call Back Request Social History Tobacco Use [...] does not agree with. Contact pt at [phone] documented in this encounter Plan of Treatment Upcoming Encounters Date Type Department Care Team (Late st Contact Info) Description 01/17/2025 3:15 PM EST Office Visit [facility] MED & PEDS [address] [place] [address] Meredith Rm MD [address] [place] [address] documented as of this encounter Visit Diagnoses Not on filedocumented in this encounter Care Teams University Teacher Relationship Specialty Start Date End Date Meredith Rm MD [address] [place] [address] PCP - General Family Medicine 02/14/18 documented as of this encounter
--- OUTSIDE RECORDS SUMMARY | 2024-12-26 18:35 | XMS_ITS | Encounter Summary ---
Author Organization [employer] [facility] Address [address] [facility] 7t [place] [address] Care Team Providers Care Furrier Apprentice Name Role Phone Meredith Rm MD Primary Care Provider [phone] Encounter Details Date Type Department Care Team (Late st Contact Info) Description 11/19/2024 Results Follow-Up [facility] MEDICINE [address] [place] [address] Katheryn Helm CNM [address] [place], [place] [phone] Culture, Urine, Routine, POCT urinalysis dipstick manually [...] do with the antibiotics. Contact pt at [phone] documented in this encounter Plan of Treatment Upcoming Encounters Date Type Department Care Team (Late st Contact Info) Description 01/17/2025 3:15 PM EST Office Visit [facility] MED & PEDS [address] [place] [address] Meredith Rm MD [address] [place] [address] documented as of this encounter Visit Diagnoses Not on filedocumented in this encounter Additional Health Concerns Assessment Noted Time PHQ-9 Depression Total Score: 2 11/15/19 25 4:04 PM EDT documented as of this encounter Care Teams Furrier Apprentice Relationship Specialty Start Date End Date Meredith Rm MD [address] [place] [address] PCP - General Family Medicine 02/14/18 documented as of this encounter
--- OUTSIDE RECORDS SUMMARY | 2024-12-26 18:35 | XMS_ITS | Clinical Summary ---
Author Organization [employer] [facility] Address [address] [facility] 7t [place] [address] Care Team Providers Care Flap Lining Binder Name Role Phone Meredith Rm MD Primary Care Provider [phone] Allergies No known active allergies Medications azelastine (Astelin) 0.1 % nasal spray Administer 1 spray into each nostril 2 times daily. Use in each nostril as directed 30 mL 12 3 Active ergocalciferol (Vitamin D2) 1.25 MG (16189 UT) capsule Take 1 capsule (1.25 mg) [...] week. 12 patch 5 02/07/20 25 Active metroNIDAZOLE (Flagyl) 500 MG tablet Take 1 tablet (500 mg) by mouth 2 times daily for 7 days. 14 tablet 5 11/27/19 25 Active Problems Problem Noted Date Diagnosed [...] on 2025 due to hx TA on 21. Avoid Foods that contain seeds due to [...] Encounters Date Type Department Care Team Description 12/13/2024 Refill [facility] CHC MED & PEDS [address] [place] [address] Meredith Rm MD 11/22/2024 Results Follow-Up [facility] MEDICINE [address] [place] [address] Shaniqua Engel NP POCT Urinalysis, POCT Urine , Urinalysis with reflex microscopic, Additional followed-up results: 2 11/19/2024 6:00 PM EDT Office Visit [facility] [address] [place] [phone] Shaniqua Engel NP Persistent hematuria (Primary Dx); Urinary frequency; Upper abdominal pain; Abdominal bloating 11/19/2024 Orders Only [address] [address] Katheryn Helm CNM 11/19/2024 Results Follow-Up [address] [address] Katheryn Helm CNM Culture, Urine, Routine, POCT urinalysis dipstick manually resulted 11/17/2024 [facility]phone [facility] [address] [address] Meredith Rm MD change provider 11/15/2024 Orders Only [address] [address] Katheryn Helm CNM 11/14/2024 3:30 PM EDT Office Visit [address] [address] Katheryn Helm CNM Dysuria (Primary Dx); Vasomotor symptoms due to menopause 11/14/2024 Travel 11/13/2024 Telephone [facility] [address] [address] [place] 11/13/2024 Travel 11/10/2024 12:40 PM EDT [facility] [address] [address] Queta Osorio MD Acute cystitis with hematuria (Primary Dx); Elevated BP without diagnosis of hypertension; Dysuria 11/10/2024 Travel 11/09/2024 Telephone [facility] MED & PEDS [address] [place] [address] Meredith Rm MD Call Back Request 11/08/2024 Telephone [facility] MED & PEDS [address] [place] [address] Meredith Rm MD Nurse Triage 10/13/2024 Refill [facility] CHC MED & PEDS [address] [place] [address] Meredith Rm MD from Last 3 Months Immunizations Immunization Administration [...] Upcoming Encounters Date Type Department Care Team ([facility] st Contact Info) Description 01/17/2025 3:15 PM EST Office Visit [facility] CHC MED & PEDS [address] [place] [address] Meredith Rm MD [address] [place] [address] Health Maintenance Due Date Last Done Comments [...] 05/18/2023 Dental X-Ray: [facility]ings 05/18/2024 05/18/2023, 05/17 COVID-19 Vaccine ( season) 2024 12/07/2023, 12/11/2021, 12/11/2021, Additional history exists Influenza Vaccine (#1) 2024 , 12/09/2022, 12/11/2021, Additional history exists Cervical Cancer Screening 01/28/2025 HPV/Cotest 01/28/2025 01/29/2020, 10/11/2017 Pap Smear 01/28/2025 01/29/2020 Mammogram 09/20/2025 09/21/2023, 06/0 07/2022, 05/12/2021, Additional history exists Disability Screening 11/13/2025 11/13/2024 Alcohol/Substance Use Screening 11/14/2025 11/14/2024 Depression Screening 11/14/2025 11/14/2024, 11/15/19 25 SDOH Screening 11/14/2025 11/14/2024 Tobacco Screening 11/19/2025 11/19/2024 DTaP/Tdap/Td Vaccines (2 - Td or Tdap) 01/21/2028 01/20/2018 RSV Patients and Patients Aged 60 years or older (1 - 1-dose 75+ series) 2048 Hepatitis C Screening Completed 02/14/2020 HIV Screening Completed 05/14/2021, 02/14/2020 HIB Vaccines Aged Out No longer eligi [...] Procedure Name Priority Date/Time Associated Diagnosis Comments URINALYSIS WITH REFLEX MICROSCOPIC Routine 11/20/2024 3:10 PM EDT Persistent hematuria CBC WITH AUTO DIFFERENTIAL Routine 11/20/2024 3:07 PM EDT Upper abdominal pain COMPREHENSIVE METABOLIC PANEL Routine 11/20/2024 3:07 PM EDT Upper abdominal pain POCT , URINE Routine 11/19/2024 6:56 PM [...] Recently Relevant to Health Maintenance Results * Urinalysis with reflex microscopic (11/20/2024 3:10 PM EDT) Color Urine Yellow [facility] Appearance Urine Clear [facility] PH 7.5 5.0 - 9.0 [facility] Glucose Urine UA Negative Negative mg/dL [facility] Urine Blood Negative Negative [facility] Specific [place] - Urine 1.010 1.005 - 1.025 [facility] Urine Protein Negative Neg-Trace mg/dL [facility] Urine Ketones Negative Negative mg/dL [facility] Nitrite Urine Negative Negative [facility] Leukocyte Esterase Urine Negative Negative [facility] Urine (Urine, Random) 11/20/2024 3:10 PM EDT 11/20/2024 5:57 PM EDT Narrative [facility] - 11/20/2024 6:17 PM EDT [id number], Clean Catch us Shaniqua Engel COORDINATING PRODUCER LAB URINE ORDERABLES Final Resu lt [facility] [address], [place] [phone] * (ABNORMAL) CBC auto differential (11/20/2024 3:07 PM EDT) White Blood Count 8.0 4.8 - 10.8 X10*3/uL [facility] Red Blood Count 4.35 4.20 - 5.50 X10*6/uL [facility] Hemoglobin 12.5 12.0 - 16.0 g/dl [facility] Hematocrit 35.6(L) 37.0 - 47.0 % [facility] Mean Corpuscular Volume 81.8 80.0 - 98.0 fL [facility] Mean Corpuscular Hemoglobin 28.7 27.0 - 33.0 pg [facility] Mean Corpuscular HGB Conc 35.1(H) 31.0 - 35.0 g/dl [facility] Red Cell Distribution Width 14.4 11.0 - 16.0 % [facility] Platelet Count 268 160 - 400 X10*3/uL [facility] Mean Platelet Volume 10.7 9.4 - 12.3 fL [facility] Neutrophils Percent Auto 70.0 45 - 73 % [facility] Imm Gran Pct Auto 0.3 0.0 - 0.4 % [facility] Lymphocytes Percent Auto 22.1 20 - 40 % [facility] Monocytes Percent Auto 5.8 2 - 11 % [facility] Eosinophils Percent Auto 1.3 0 - 4 % [facility] Basophils Percent Auto 0.5 0 - 2 % [facility] NRBC Pct Auto 0.0 0.0 - 0.2 /100WBC [facility] Neutrophils Absolute Auto 5.6 2.0 - 8.3 x10*3/uL [facility] Imm Gran Abs Auto 0.02 0.00 - 0.03 X10*3/uL [facility] Lymphocytes Absolute Auto 1.8 1.2 - 4.9 X10*3/uL [facility] Monocytes Absolute Auto 0.5 0.1 - 1.2 X10*3/uL [facility] Eosinophils Absolute Auto 0.1 0.0 - 0.4 X10*3/uL [facility] Basophils Absolute Auto 0.0 0.0 - 0.2 X10*3/uL [facility] NRBC Abs Auto 0.000 0.0 - 0.012 X10*3/uL [facility] Blood Venous blood specimen / Unknown 11/20/2024 3:07 PM EDT 11/20/2024 5:51 PM EDT us Shaniqua Engel NP LAB BLOOD ORDERABLES Final Resu lt [facility] [address] [place] [address] [phone] * Comprehensive Metabolic Panel (11/20/2024 3:07 PM EDT) Sodium 143 135 - 145 mmol/L [facility] Potassium 3.3 3.3 - 5.1 mmol/L [facility] Chloride 105 96 - 108 mmol/L [facility] Carbon Dioxide 27 22 - 29 mmol/L [facility] Anion Gap 14 12 - 20 [facility] Urea Nitrogen (BUN) 14 9 - 16 mg/dL [facility] Creatinine, Serum 0.61 0.5 - 1.4 mg/dL [facility] Estimated Glomerular Filt Rate >60 [facility] Comment:Chronic Kidney Disea se: Estimated GFR < 60 mL/min/1.89y4Lremab Kidney Disease: Estimated GFR < 15 mL/min/1.73m2 Glucose 89 60 - 115 mg/dL [facility] Calcium 9.5 8.4 - 10.2 mg/dL [facility] Bilirubin, Total 0.3 0.0 - 1.0 mg/dL [facility] Aspartate Amino Transferase 27 5 - 31 U/L [facility] Alanine Aminotransferase 30 0 - 31 U/L [facility] Total Protein 7.4 6.5 - 8.0 g/dL [facility] Albumin Level 4.5 3.5 - 5.0 g/dL [facility] Alkaline Phosphatase 85 39 - 117 U/L [facility] Blood Venous blood specimen / Unknown 11/20/2024 3:07 PM EDT 11/20/2024 5:51 PM EDT Count includes the [facility] LAB BLOOD ORDERABLES Final Resu lt [facility] [address] [place] [address] [phone] * POCT Urine (11/19/2024 6:56 PM EDT) Preg Test, Ur Negative Negative, Indeterminate, None Detected, Invalid, Specimen unsatisfactory for evaluation, Weakly Positive, 2+ QC Media Lot # [id number] Lot# Expiration Date Urine 11/19/2024 6:56 PM EDT Count includes the [facility] POINT OF CARE TEST ENTER/EDIT O RDERABLES [...] Expiration Date Urine 11/19/2024 6:55 PM EDT Count includes the [facility] POINT OF CARE TEST ENTER/EDIT O RDERABLES Final Result * (ABNORMAL) Urinalysis, Complete, with Reflex to Culture (11/19/2024 6:40 PM EDT) Color Urine Yellow [facility] Appearance Urine Clear [facility] PH 6.5 5.0 - 9.0 [facility] Glucose Urine UA Negative Negative mg/dL [facility] Urine Blood Negative Negative [facility] Specific [place] - Urine 1.015 1.005 - 1.025 [facility] Urine Protein Negative Neg-Trace mg/dL [facility] Urine Ketones Negative Negative mg/dL [facility] Nitrite Urine Negative Negative [facility] Leukocyte Esterase Urine Trace(A) Negative [facility] RBC Urine 0-2 0 - 2 /HPF [facility] Urine WBC 0-5 0 - 5 /HPF [facility] Urine Squamous Epithelial Cell 0-2 0 - 2 /HPF [facility] Urine Bacteria None Seen None Seen [facility] Hyaline Casts, Urine 0-2 0 - 2 /LPF [facility] 11/19/2024 6:40 PM EDT 11/20/2024 1:41 PM EDT Narrative [facility] - 11/20/2024 2:05 PM EDT Urine, Clean Catch Shaniqua Engel COORDINATING PRODUCER LAB URINE ORDERABLES Final Resu lt Performing Organization Address [facility] Co de Phone Number [facility] [address] [place] [address] [phone] * Culture, Urine, Routine (11/14/2024 4:20 PM EDT) Only the most recent of2 resultswithin the time period is included. Urine Urine specimen obtained by clean catch procedure / Unknown 11/14/2024 4:20 PM EDT 11/14/2024 7:27 PM EDT Comment:[facility] - 11/19/2024 7:40 AM EDT Gardnerella vaginalis Quant 50,000 to 100,000 cfu/mL Susc N/A Susceptibility not routinely performed on this isolate. Specimen Source: Urine clean catch Katheryn Helm CNM LAB MICROBIOLOGY - GENERA L ORDERABLES Final Result Performing Organization Address [facility] Co de Phone Number [facility] [address] [place] [address] [phone] * BI Mammogram Screening Tomosynthesis Bilateral (09/21/2023 3:00 PM EDT) Anatomical Region Laterality Modality Breast Bilateral Mammography 09/21/2023 3:00 PM EDT Narrative 10/18/2023 7:41 AM EDT [facility] [address] [place] [address] Mammography Report Signed Patient: Olga Lassiter MR#: [id number] : 1975 Acct:[id number] Age/Sex: 48 / F ADM Date: 09/21/23 Loc: FE Attending Dr: Meredith Rm MD Ordering Physician: Meredith Rm MD Results: 1Ne gative Date of Service: 09/21/23 Follow Up: 1 Year From Orig ina Mammogram Procedure(s): MM tomosynthesis screening BI Accession Number(s): [id number] cc: Meredith Rm MD EXAMINATION: MM SCREENING [...] 10/18/23 0738 DD/ 1500 TD/TT: 09/21/23 1540 Field Representatives Director: Procedure Note Donotuseinterpreter, Image - 10/18/2023 Krist[place] [facility] [address] [place], [place] [address] Mammography Report Signed Patient: Petey Lassiter#: [id number] : 1975Acct:[id number] Age/Sex: 48 / FADM Date: 09/21/23 Loc: HOAnahiMAMMO Attending Dr: Meredith Rm MD Ordering Physician: Meredith Rm MDResults: 1Ne gative Date of Service: 09/21/23Follow Up: 1 Year From Orig inal Mammogram Procedure(s): MM tomosynthesis screening BI Accession Number(s): [id number] cc: Meredith Rm MD EXAMINATION: MM SCREENING [...] 10/18/23 0738 DD/ 1500 TD/TT: 09/21/23 1540 Field Representatives Director: Meredith Rm MD IMG BI PROCEDURES Final Resul t * HIV AB/AG (05/14/2021 8:16 AM EDT) [facility] HIV AB/AG Nonreactive Nonreactive [facility] Comment: HIV-1 p24 Ag and/or [...] of detection of this assay. The [employer]line Skiver Counter HIV Ag/Ab Combo assay result and supplemental assay results should be interpreted in conjunction with the patient's clinical presentation, history and other laboratory results. If the results are inconsistent with clinical evidence, additional testing is suggested to confirm the result. 05/14/2021 8:16 AM EDT Result [facility] Historical Provider HISTORICAL/NON ORDERABLE LABS Final Result Performing Organization Address [facility] de Phone Number [facility] [address] [place] [address], * HEPATITIS C AB W/REFL TO HCV RNA, QN, PCR (02/14/2020 2:48 PM EST) [facility] HEPATITIS C ANTIBODY NON-REACT CARLOS A NON-REACT CARLOS A [facility] INDEX 0.03 <1.00 [facility] Comment: HCV antibody was non-reactive. There is no laboratory evidence of HCV infection. In most cases, no further action is required. However, if recent HCV exposure is suspected, a test for HCV RNA (test code 99353) is suggested. For additional information please refer to http://education.[employer]/faq/YIJ76k4 (This link is being provided for informational/ educational purposes only.) 02/14/2020 2:48 PM EST Meredith Rm MD HISTORICAL/NON ORDERABLE LABS Final Result Performing Organization Address City/[facility] Co de Phone Number [facility] [address] [place] [address], * THINPREP PAP (01/29/2020 2:43 PM EST) [...] along with historic and current clinical information. Coil Rewind Machine Operator : SEE COMMENT [facility] Comment: RK, CT(ASCP) CT screening location: [place] [address] Interpretation/R esult: Negative for intraepithelial lesion or malignancy. [facility] LMP: NONE GIVEN [facility] Prev. BX: NONE [facility]IVEN [facility] Prev. PAP: NONE [facility]IVEN [facility] SOURCE: None given [facility] Statement Of Adequacy: SEE COMMENT [facility] Comment: Satisfactory for evaluation. Endocervical/transformation zone component present. Age and/or menstrual status not provided 01/29/2020 2:43 PM EST Katheryn Helm [facility] PATHOLOGY ORDERABLES Final Result Performing Organization Address [facility] de Phone Number [facility] [address] [place] [address], * HPV mRNA E6/E7 (01/29/2020 2:43 PM EST) HPV nRNA E6/E7 Not Detected Not Detected [facility] Comment: This test was performed using the APTIMA HPV Assay ([employer] This assay detects E6/E7 viral messenger RNA (mRNA) from 14 high-risk HPV types (16,18,31,33,35,39,45,51,52,56,58,59,66,68). The analytical performance characteristics of this assay have been determined by [employer]. The modifications have not been cleared or approved by the FDA. This assay has been validated pursuant to the CLIA regulations and is used for clinical purposes. 01/29/2020 2:43 PM EST Katheryn CABA LAB BLOOD ORDERABLES Velia rothman Result [facility] [address] [place] [address], from Last 3 Months or Most Recently Relevant to Health Maintenance Insurance [facility] [place] [employer] Care Teams Flap Lining Binder Relationship Specialty Start Date End Date Meredith Rm MD [address] [place] [address] PCP - General Family Medicine 02/14/18
--- OUTSIDE RECORDS SUMMARY | 2024-12-26 18:35 | XMS_ITS | Encounter Summary ---
Author Organization [employer] Address [address] [facility] [address] [place] [address] Care Team Providers Care Sliver Lap Machine Tender Name Role Phone Meredith Rm MD Primary Care Provider [phone] Reason for Visit * Reason Onset Date Comments Med Refill 04/16/2024 Encounter Details Date Type Department Care Team ([facility] Contact Info) Description 04/16/2024 Refill [facility]S [address] [place], [place] [phone] Meredith Rm MD [address] [place] [address] Social History Tobacco Use Types Packs/Day Years [...] Upcoming Encounters Date Type Department Care Team ([facility] st Contact Info) Description 01/17/2025 3:15 PM EST Office Visit [facility] MED [facility] PED[facility] [address] [place] [address] Meredith Rm MD [address] [place] [address] documented as of this encounter Visit Diagnoses Not on filedocumented in this encounter Care Teams Sliver Lap Machine Tender Relationship Specialty Start Date End Date Meredith Rm MD [address] [place] [address] PCP - General Family Medicine 02/14/18 documented as of this encounter
== END 2024-12-26 15:22 | disposition home or self-care (01) ==
LOC: HO.MAMMO 15:21
PROVIDERS: Visit Provider Pediatrics
DX: Z12.31 Encounter for screening mammogram for malignant neoplasm of breast (principal)
CPT/HCPCS: 77063; 77067

== ENCOUNTER → 2024-12-26 15:30 | Outpatient (BNV) | payer OTHER, SELFPAY | PROVIDERS: Visit Provider Internal Medicine | DX: Z12.31 Encounter for screening mammogram for malignant neoplasm of breast (principal) | CPT/HCPCS: 77063; 77067 ==